=== PATIENT | female | born 1995 | race Caucasian/White ===

== ENCOUNTER 2018-06-18 09:37 | Emergency (ER) | payer OTHER, MEDICAID, SELFPAY ==
[2018-06-18 09:51] VITALS: BP 124/85; PULSE 98; RESP 16; TEMP 37; O2SAT 97
--- NOTE | 2018-06-18 10:06 | ED.GENADUL ---
Disposition Clinical Impression: Exudative pharyngitis Disposition: HOME Condition: Good Instructions: Pharyngitis (ED) Additional Instructions: Small, frequent sips of fluids and/or popsicles to maintain hydration and for comfort. May use Tylenol 652 975 mg every 6 hours and/or ibuprofen 800 mg every 8 hours as needed for discomfort. Take penicillin as prescribed. Follow-up with regular doctor if not improving in 1 week's time prepare for return to the emergency department for difficulty speaking, swallowing, worsening pain, or any other concerns. Prescriptions: Penicillin V Potassium 500 mg PO TID #30 tablet Forms: Work Release Medical Decision Making - Lab Data POC Strep Test-ANGELINA(Rapid) Start: 06/18/18 09:58 Freq: .Rapid Strep Test Status: Active Document 06/18/18 09:58 MMQ (Rec: 06/18/18 09:58 MMQ [id number]) Strep test-ANGELINA(Rapid)-POC POC-Strep test-ANGELINA (Rapid) Negative - Medical Decision Making 23-year-old female presents with 2 days of sore throat, tonsillar erythema with exudate with herpangina versus acute streptococcal infection. She does work with both. I will place her on a course of penicillin. Follow-up with PMD as needed. She stable and appropriate discharge. I discussed home management as well as return precautions with her prior to discharge. History of Present Illness - General Chief complaint: Sorethroat Stated complaint: STREP? Time Seen by Provider: 06/18/18 10:00 Source: patient, RN notes reviewed Mode of arrival: ambulatory Limitations: no limitations - History of Present Illness Initial comments: Throat pain: 23-year-old female, otherwise healthy, on control pills, presents with the gradual onset of dull, achy, moderate, nonradiating bilateral anterior throat pain and pain with swallowing. No change to ability to swallow. She has not had a muffled voice. Subjective fever. Denies other symptoms such as cough, nausea, vomiting, change to stool. Positive sick contacts at work. Improved with fluids. Otherwise she has been well. - Related Data Medroxyprogesterone Acetate [Depo-Provera] 150 mg IM 90 days #1 syringe 05/11/18 Penicillin V Potassium 500 mg PO TID #30 tablet 06/18/18 Allergies Allergy/AdvReac Type Severity Reaction Status Date / Time influenza virus vaccine, AdvReac Severe DIARRHEA Unverified 06/18/18 09:54 specific [influenza virus vacc,specific] Review of Systems Other: 6 systems reviewed, otherwise negative Past Medical History - Past Medical History Medical history: no medical history Surgical history: no surgical history - Social History Alcohol use: none Drug use: other General Exam - General Limitations: no limitations General appearance: alert, in no apparent distress - Head Head exam: Present: atraumatic, normocephalic - Eye Eye exam: Present: PERRL, EOMI - ENT ENT exam: Present: mucous membranes dry, TM's normal bilaterally, other (Bilateral tonsillar erythema with swelling, exudate. Uvula midline. No asymmetry. No poor dentition) - Neck Neck exam: Present: normal inspection, full ROM, lymphadenopathy, other (Mild anterior tenderness.). Absent: meningismus - Respiratory Respiratory exam: Present: normal lung sounds bilaterally. Absent: respiratory distress, chest wall tenderness - Cardiovascular Cardiovascular Exam: Present: regular rate, normal rhythm. Absent: systolic murmur - GI/Abdominal GI/Abdominal exam: Present: soft. Absent: distended, tenderness, mass - Extremities Exam Extremities exam: Present: normal inspection - Back Exam Back exam: Present: normal inspection - Neurological Exam Neurological exam: Present: alert, oriented X3 - Psychiatric Psychiatric exam: Present: normal affect, normal mood - Skin Skin exam: Present: warm, dry, intact Course Vital Signs - 24 hr 06/18/18 09:51 Temperature 37 C Pulse 98 H Respiratory 16 Rate Blood Pressure 124/85 Pulse Oximetry 97
--- NOTE | 2018-06-18 10:09 | ED.GENADUL_ITS ---
Disposition Clinical Impression: Exudative pharyngitis Disposition: HOME Condition: Good Instructions: Pharyngitis (ED) Additional Instructions: Small, frequent sips of fluids and/or popsicles to maintain hydration and for comfort. May use Tylenol 652 975 mg every 6 hours and/or ibuprofen 800 mg every 8 hours as needed for discomfort. Take penicillin as prescribed. Follow-up with regular doctor if not improving in 1 week's time prepare for return to the emergency department for difficulty speaking, swallowing, worsening pain, or any other concerns. Prescriptions: Penicillin V Potassium 500 mg PO TID #30 tablet Forms: Work Release Medical Decision Making - Lab Data POC Strep Test-ANGELINA(Rapid) Start: 06/18/18 09: 58 Freq: .Rapid Strep Test Status: Active Document 06/18/18 09:58 MMQ (Rec: 06/18/18 09:58 MMQ [id number]) Strep test-ANGELINA(Rapid)-POC POC-Strep test-ANGELINA (Rapid) Negative - Medical Decision Making 23-year-old female presents with 2 days of sore throat, tonsillar erythema with exudate with herpangina versus acute streptococcal infection. She does work with both. I will place her on a course of penicillin. Follow-up with PMD as needed. She stable and appropriate discharge. I discussed home management as well as return precautions with her prior to discharge. History of Present Illness - General Chief complaint: Sorethroat Stated complaint: STREP? Time Seen by Provider: 06/18/18 10:00 Source: patient, RN notes reviewed Mode of arrival: ambulatory Limitations: no limitations - History of Present Illness Initial comments: Throat pain: 23-year-old female, otherwise healthy, on control pills, presents with the gradual onset of dull, achy, moderate, nonradiating bilateral anterior throat pain and pain with swallowing. No change to ability to swallow. She has not had a muffled voice. Subjective fever. Denies other symptoms such as cough, nausea, vomiting, change to stool. Positive sick contacts at work. Improved with fluids. Otherwise she has been well. - Related Data Medroxyprogesterone Acetate [Depo-Provera] 150 mg IM 90 days #1 syringe Penicillin V Potassium 500 mg PO TID #30 tablet 06/18/18 Allergies Allergy/AdvReac Type Severity Reaction Status Date / Time influenza virus vaccine, AdvReac Severe DIARRHEA Unverified 06/18/18 09:54 specific [influenza virus vacc,specific] Review of Systems Other: 6 systems reviewed, otherwise negative Past Medical History - Past Medical History Medical history: no medical history Surgical history: no surgical history - Social History Alcohol use: none Drug use: other General Exam - General Limitations: no limitations General appearance: alert, in no apparent distress - Head Head exam: Present: atraumatic, normocephalic - Eye Eye exam: Present: PERRL, EOMI - ENT ENT exam: Present: mucous membranes dry, TM's normal bilaterally, other ( Bilateral tonsillar erythema with swelling, exudate. Uvula midline. No asymmetry. No poor dentition) - Neck Neck exam: Present: normal inspection, full ROM, lymphadenopathy, other (Mild anterior tenderness.). Absent: meningismus - Respiratory Respiratory exam: Present: normal lung sounds bilaterally. Absent: respiratory distress, chest wall tenderness - Cardiovascular Cardiovascular Exam: Present: regular rate, normal rhythm. Absent: systolic murmur - GI/Abdominal GI/Abdominal exam: Present: soft. Absent: distended, tenderness, mass - Extremities Exam Extremities exam: Present: normal inspection - Back Exam Back exam: Present: normal inspection - Neurological Exam Neurological exam: Present: alert, oriented X3 - Psychiatric Psychiatric exam: Present: normal affect, normal mood - Skin Skin exam: Present: warm, dry, intact Course Vital Signs - 24 hr 06/18/18 09:51 Temperature 37 C Pulse 98 H Respiratory 16 Rate Blood Pressure 124/85 Pulse Oximetry 97
== END 2018-06-18 10:40 | disposition home or self-care (01) ==
PROVIDERS: Emergency Provider Emergency Medicine; PCP Physician Assistant Medical
DX: J02.9 Acute pharyngitis, unspecified (principal)
CPT/HCPCS: 87880; 99283; 87081

== ENCOUNTER 2018-08-02 15:22 | Outpatient (REF) | payer OTHER, MEDICAID, SELFPAY ==
--- NOTE | 2018-08-02 15:00 | PAPFT_PTH ---
PATIENT: Ida Doe LOC: [facility] U#:[id number] AGE/SX: 23/F ROOM: RE08/02/[address]: Shavon Maher NP : 1995 BED: DIS: 08/02/2018 SPEC #: [id number] RECD: 08/02/18 18:08 STATUS: BRITTNEY SAMUELS #: [id number] MICHELLE: 08/02/18 15:[address]: Shavon Maher NP DEPT: [facility] Cytology RECD BY: Genie Barker ENTERED: 08/02/18 18:09 SP TYPE: PAPFT OTHR DR: Karina Walters Tissues: 1 - CX/ENDOCX FOR PAP SMEARS Procedures: PAP THIN PREP/UVM Screening Comments: [id number] (CHLAMYDIA/GC)
[2018-08-03 13:52] LABS: Chlamydia Result Negative; GC Result Negative; Specimen Description SEE COMMENTS
== END 2018-08-02 15:42 ==
LOC: LBN 15:22
PROVIDERS: PCP Physician Assistant Medical; Visit Provider Nurse Practitioner Women's Health
DX: Z12.4 Encounter for screening for malignant neoplasm of cervix (principal); Z11.3 Encounter for screening for infections with a predominantly sexual mode of transmission; N94.9 Unspecified condition associated with female genital organs and menstrual cycle
CPT/HCPCS: 87491; 87591; 88142; 87480; 87510; 87660

== ENCOUNTER 2018-08-09 00:48 | Outpatient (CLI) | payer OTHER, MEDICAID, SELFPAY ==
--- NOTE | 2018-08-09 12:42 | DI.US_ITS ---
SYMPTOMS/DIAGNOSIS: PELVIC AND PERINEAL PAIN, R10.2 PELVIC ULTRASOUND: A transabdominal and transvaginal examination was carried out. The uterus is 2.9 cm in length, 3.2 cm in height and 5.3 cm in width with an endometrial stripe thickness of 1.5 mm. The right ovary measures 3 x 2.2 x 3 cm, the left ovary 3 x 1.7 x 2.3 cm. There are multiple right and left follicular cysts. There is no evidence of pelvic free fluid. Prominence of the periuterine and pelvic veins is noted. SUMMARY: The examination is unremarkable with note made of prominence of the periuterine and pelvic veins.
== END 2018-08-09 01:08 ==
PROVIDERS: PCP Physician Assistant Medical; Visit Provider Nurse Practitioner Women's Health
DX: R10.2 Pelvic and perineal pain (principal); N83.01 Follicular cyst of right ovary; N83.02 Follicular cyst of left ovary
CPT/HCPCS: 76830; 76856

== ENCOUNTER 2018-08-27 15:32 | Emergency (ER) | payer OTHER, MEDICAID, SELFPAY ==
[2018-08-27 15:49] VITALS: BP 114/75; PULSE 111; RESP 20; TEMP 37; O2SAT 98
--- NOTE | 2018-08-27 16:10 | DI.RAD_ITS ---
SYMPTOMS/DIAGNOSIS: COUGH FOR 3 WEEKS, MINIMAL WHEEZE, LEFT RIB PAIN PA AND LATERAL CHEST: The heart is normal in size. The lungs are clear. The mediastinal structures and pleura appear intact. SUMMARY: Normal chest.
[2018-08-27] MEDS: methylPREDNISolone SUCC 125 MG VIAL IM (16:37)
[2018-08-27 16:39] VITALS: RESP 4
[2018-08-27] MEDS: Albuterol/Ipratropium 3 ML UPD VIAL 6 ML UPD (16:39)
--- NOTE | 2018-08-27 17:00 | DI.VRAD_ITS ---
EXAM: XR Chest, 2 Views EXAM DATE/TIME: 08/27/2018 4:13 PM CLINICAL HISTORY: 23 years old, female; Signs and symptoms; Cough; Patient HX: Cough 3 weeks, minimal wheeze, l rib pain TECHNIQUE: XR of the chest, 2 views. COMPARISON: CR ABD FLAT UPRIGHT PA CHEST 10/26/2012 12:46 PM FINDINGS: Lungs: Unremarkable. No consolidation. Pleural space: Unremarkable. No pleural effusion. No pneumothorax. Heart/Mediastinum: Unremarkable. No cardiomegaly. Bones/joints: Unremarkable for patient's age. IMPRESSION: No acute findings. Dictated and Authenticated by: Savannah Schrader MD. Ordering:NHAN YATES MD
--- NOTE | 2018-08-27 18:07 | W.ED.GENAD ---
Discharge Plan Disposition Patient Disposition: HOME Condition: Good Discharge Details Chief Complaint: Chest/Rib Clinical Impression: Bronchitis Reason For Visit: pulled something coughing Primary Care Provider: Karina Walters ED Provider: Rod Fitch Home Meds and New Rx's Prescriptions: New azithromycin 250 mg tablet See Label Instructions .ROUTE .COMPLEX Qty: 6 RF: 0 albuterol sulfate 90 mcg/actuation HFA aerosol inhaler 2 puff IH Q6H PRN (Reason: bronchospasm) Qty: 6.7 RF: 0 No Action medroxyprogesterone [Depo-Provera] 150 MG/1 ML syringe 150 mg IM 90 days Qty: 1 RF: 3 Discharge Instructions Instructions: Acute Bronchitis (ED) Additional Instructions: Please take the inhaler daily as directed. Please take the antibiotic only if you do not have any improvement of symptoms in the next 48 hours. If you notice any worsening of your symptoms, or any new symptoms such as vomiting, diarrhea, fever, chills, shortness of breath, chest pain, numbness, weakness, or fainting , please return immediately to the emergency department for reevaluation. Please follow up with your primary care provider as soon as possible for reassessment and reevaluation. As always, it was a pleasure participating in your medical care today. Stand Alone Forms: Work Release Referrals: Karina Walters PA [Primary Care Provider] - Discharge Data Discharge Date/Time-TO BE ENTERED AT DEPARTURE: 08/27/18 18:23 Medical Decision Making Is a pleasant 23-year-old female who presents for evaluation of cough. She presents with 3 weeks of cough, which did get better about 1 week ago and then began worsening again. It is productive with some white and yellow sputum. She does have a distant history of tobacco abuse. She had no significant pleuritic chest pain but did develop some recent left-sided rib pain associated with a cough that is reproducible on exam. She has no risk factors for pulmonary embolism except for a Depakote shot, however her current clinical presentation is not consistent with a pulmonary embolism on my examination. She has no hypoxia, tachypnea, and heart rate was normal on my initial assessment and repeat assessment. Physical exam is consistent though with bronchitis, and potential atypical walking pneumonia. She did have minimal erythema in her posterior oropharynx, strep test was performed and was negative. Physical exam did demonstrate minimal crackles in the bases with a mild wheeze. The patient was giving breathing treatments and she felt much improved after this. With the duration of the patient's symptoms I feel 1 or 2 scenarios are most likely, she either has had 2 separate pulmonary issues, most likely both infectious. Uncertain as to whether or not they are viral versus bacterial however with the duration of her symptoms, the notable lung sounds appreciated on my exam, and her other symptomatology I do feel that it is reasonable to treat with antibiotics for potential walking atypical pneumonia. With her notable improvement with the breathing treatments I will send her home with an inhaler. Chest x-ray showed no signs of focal pneumonia, however I do still feel that treatment is indicated based on her symptomatology. I had a long discussion with the patient regarding red flags for which to return as well as the need for prompt follow-up care and the patient understands. I have extensively reviewed the treatment plan and discharge instructions with the patient. I have addressed all patient concerns at this time. The patient was made aware of what symptoms to monitor for that would warrant a return to the emergency department. Discussed the plan with the patient, they demonstrate verbal understanding and agreement with our assessment and plan at this time. X-ray: No acute findings HPI General Date/Time Provider Initiated Documentation: 08/27/18 15:37. HPI Narrative: This is a 23-year-old female with a past medical history of Depo shot, and a distant history of tobacco abuse in the past. She presents today for evaluation of cough for the last 2-3 weeks. She states that she has been coughing nearly continuously. About a week ago her symptoms notably improved however then they started worsening again. She denies any associated fever, chills, vomiting, or diarrhea. She does have some productivity with her cough with some mild clear to yellow sputum. Over the last 24-48 hours she has noticed worsening of her cough, and she states that she coughed so hard last night and now she has pain in her ribs, primarily on the left but some on the right as well. She denies any relieving symptoms. Her symptoms are worse with coughing. He denies any shortness of breath, pleuritic chest pain, or any PE risk factors such as recent long car rides, immobilization, recent surgery, prior history of DVT or PE, family history of PE or DVT, morbid obesity, and smoking, hemoptysis, history of cancer. She denies any sore throat but does admit to some mild congestion, runny nose, and pressure in her left ear. The patient denies any other associated complaints at this time. She does admit to sick contacts which includes her son, and where she works. She denies any hemoptysis, hematochezia, melena, or acholic stool. She denies any previous surgeries she has no other complaints at this time Related Data Home Medications Medication Instructions Recorded Confirmed medroxyprogesterone [Depo-Provera] 150 mg IM 90 days #1 syringe 05/11/18 08/02/18 albuterol sulfate 2 puff IH Q6H PRN #6.7 gm 08/27/18 azithromycin See Label Instructions .ROUTE 08/27/18 .COMPLEX #6 tab Previous Rx's Medication Instructions Recorded medroxyprogesterone [Depo-Provera] 150 mg IM 90 days #1 syringe 05/11/18 albuterol sulfate 2 puff IH Q6H PRN #6.7 gm 08/27/18 azithromycin See Label Instructions .ROUTE 08/27/18 .COMPLEX #6 tab Allergies Allergy/AdvReac Type Severity Reaction Status Date / Time influenza virus vaccine, AdvReac Severe DIARRHEA Unverified 08/02/18 14:31 specific [influenza virus vacc,specific] General Stated Complaint: Chest/Rib JULIO: 4 Review of Systems Review of Systems All systems reviewed & are unremarkable except as noted in HPI and below PFSH Female Reproductive History Menstrual control method: progesterone injection Total pregnancies: 1 Exam Narrative Exam Narrative: 1.Const: Well-nourished, Well-developed, appearing stated age 2.Eyes: PERRL, no conjunctival injection, and symmetrical lids. 3.ENT: Atraumatic external nose and ears. Moist MM. Neck: Symmetric, trachea midline, No thyromegaly. Mild congestion noted in the patient's nares, minimal effusion in the left tympanic membrane, no effusion in the right. No evidence of erythema, or bulging of the tympanic membranes 4.CVS: +S1/S2, No murmurs or gallops. Peripheral pulses 2+ and equal in all extremities. Brisk capillary refill in all extremities. 5.RESP: Unlabored respiratory effort. Minimal crackles in the bases. Mild wheezes on the left. Notable reproducible chest pain on palpation of the patient's left and right chest, in the area where she has her rib pain. No significant decreased breath sounds. 6.GI: Soft, Nontender/Nondistended, No hepatosplenomegaly. No guarding or rebound. 7.MSK: Normocephalic/Atraumatic, Extremities w/o deformity or ttp No cyanosis or clubbing, Normal movement of all extremities, no calf tenderness, no calf swelling. Negative Homans sign. 8.Skin: Warm, Dry. No rashes or lesions. 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 Sensation grossly intact, no focal neurologic deficits. 10.Psych: (AAO) x3. Appropriate mood and affect Course Vital Signs Temperature 37 C 08/27/18 15:49 Pulse 111 H 08/27/18 15:49 Respiratory Rate 20 08/27/18 15:49 Blood Pressure 114/75 08/27/18 15:49 Pulse Oximetry 98 08/27/18 15:49 Temperature 37 C 08/27/18 15:49 Temperature Source Temporal Artery Scan 08/27/18 15:49 Pulse 111 H 08/27/18 15:49 Respiratory Rate 20 08/27/18 15:49 Respiratory Effort 08/27/18 15:54 Respiratory Depth Normal 08/27/18 15:54 Blood Pressure 114/75 08/27/18 15:49 Pulse Oximetry 98 08/27/18 15:49 Oxygen Delivery Method Room Air 08/27/18 15:49 Oxygen Flow Rate 0 08/27/18 15:49 Lab/Test Results Lab/Test Results: 08/27/18 16:10 Pharynx Streptococcus Screen ([facility]) - Pending POC Strep Test-ANGELINA(Rapid) Start: 08/27/18 16:08 Freq: .Rapid Strep Test Status: Active Protocol: Document 08/27/18 16:21 SGL (Rec: 08/27/18 16:22 [facility] [id number]) Strep test-ANGELINA(Rapid)-POC POC-Strep test-ANGELINA (Rapid) Negative POC-Strep test-ANGELINA (Rapid) Negative
[2018-08-27 18:24] VITALS: PULSE 92; RESP 18; TEMP 36.8; O2SAT 98
== END 2018-08-27 18:23 | disposition home or self-care (01) ==
PROVIDERS: Emergency Provider Student in an Organized Health Care Education/Training Program; PCP Physician Assistant Medical
DX: J20.9 Acute bronchitis, unspecified (principal); Z87.891 Personal history of nicotine dependence
CPT/HCPCS: 87880; 94640; 96372; 99284; 71046; 87081; 99283; J2930; J7620

== ENCOUNTER 2019-01-02 15:01 | Emergency (ER) | payer OTHER, MEDICAID, SELFPAY ==
[2019-01-02 15:04] VITALS: BP 133/79; PULSE 96; RESP 14; TEMP 36.5; O2SAT 98
--- NOTE | 2019-01-02 16:23 | ED.GENADUL_ITS ---
Discharge Plan Disposition Patient Disposition: HOME Condition: Stable Discharge Details Chief Complaint: Sorethroat Clinical Impression: Sensation of foreign body in throat Primary Care Provider: Karina Walters ED Provider: Levy Marcus Home Meds and New Rx's Prescriptions: Continued medroxyprogesterone [Depo-Provera] 150 MG/1 ML syringe 150 mg IM 90 days Qty: 1 RF: 3 albuterol sulfate 90 mcg/actuation HFA aerosol inhaler 2 puff IH Q6H PRN (Reason: bronchospasm) Qty: 6.7 RF: 0 Discharge Instructions Instructions: Pharyngitis (ED) Additional Instructions: Return to emergency department immediately if you have any difficulty swallowing, change in voice, difficulty breathing or any further concerns you may have. Otherwise you may continue to use [id number] Tylenol or Motrin for discomfort and if continued to have symptoms over the next week please follow-up with your primary care provider for reassessment Referrals: Karina Walters PA [Primary Care Provider] - 1 week (For reassessment if not improving) Discharge Data Discharge Date/Time-TO BE ENTERED AT DEPARTURE: 01/02/19 18:30 Medical Decision Making Patient presenting to the emergency department for chief complaint of foreign body sensation in her anterior neck. Patient denies any fever chills, states mild nasal congestion, no other cold symptoms. She states that this is been going on for the past week but is worsened over the past 24 hours. Patient has anterior neck pain with outpatient of the cricoid cartilage, no stridor, no drooling, no trismus, no vocal changes. There is still concern for retropharyngeal abscess given some discomfort with swallowing. Plan to do CT imaging of neck for rule out of retropharyngeal abscess. Review of CT imaging shows no acute finding and radiologist interpretation also states the same. Patient has no vocal changes, no trismus, no drooling, no stridor. I feel that patient can be safely discharged with recommendation to follow-up with primary care provider if not improving over the next week or to return immediately to the emergency department for any worsening symptoms. Full return precautions were discussed with patient. After discussion of diagnosis and plan of care patient has no further needs, questions, or concerns and states clear understanding to return to the emergency department for any worsening symptoms. HPI General Mode of arrival: ambulatory . Date/Time Provider Initiated Documentation: 01/02/19 15:09 . Limitations to Documentation: no limitations . Information obtained by: patient and RN notes reviewed . History of Present Illness 23 year old F presents to the emergency department with the chief complaint of Foreign body sensation neck, described as mild, with intensity rated at 1. Quality is described as aching, and is localized to the neck. Patient started experiencing this week(s) (1) and it has been constant and other (worse today). Patient did receive the following treatments prior to arrival, none Related Data Home Medications Medication Instructions Recorded Confirmed medroxyprogesterone [Depo-Provera] 150 mg IM 90 days #1 syringe 05/11/18 01/02/19 albuterol sulfate 2 puff IH Q6H PRN #6.7 gm 08/27/18 01/02/19 Previous Rx's Medication Instructions Recorded medroxyprogesterone [Depo-Provera] 150 mg IM 90 days #1 syringe 05/11/18 albuterol sulfate 2 puff IH Q6H PRN #6.7 gm 08/27/18 Allergies Allergy/AdvReac Type Severity Reaction Status Date / Time influenza virus vaccine, AdvReac Severe DIARRHEA Unverified 01/02/19 15:07 specific [influenza virus vacc,specific] General Stated Complaint: Sorethroat JULIO: 4 Review of Systems Constitutional Denies chills, Denies fever(s), Denies headache(s) and Denies malaise ENT Denies change in voice, Reports dysphagia, Denies otalgia, Denies headache(s), Denies hoarseness, Denies lip swelling, Denies mouth lesions, Reports nasal congestion, Reports neck pain, Reports odynophagia, Denies sore throat, Denies throat swelling and Denies tongue swelling Cardiovascular Denies chest pain Respiratory Denies chest congestion and Denies cough Gastrointestinal Reports dysphagia and Reports odynophagia Musculoskeletal Reports neck pain Neurologic Denies headache(s) Allergic/Immunologic Denies lip swelling, Denies throat swelling and Denies tongue swelling PFSH Surgical History repair of fx. r elbow growth plate Family History Mother Post traumatic stress disorder (PTSD) Alcohol abuse COPD (chronic obstructive pulmonary disease) Father Alcohol abuse Grandmother Asthma Maternal Grandmother Emphysema/COPD Lung cancer Maternal Grandfather Emphysema/COPD Social History Smoking and Tabacco status: Former Tobacco Use Female Reproductive History Menstrual control method: progesterone injection History History 1 Para Hx # Term Pregnancies 1 Multiple births Hx # Pregnancies Ectopic pregnancies AB induced Hx Number of Living Children AB spontaneous Exam Const General: cooperative, healthy appearing, comfortable, no acute distress and not ill appearing Orientation: alert, awake and oriented x3 HENMT Head: normal to inspection and normocephalic Ears: hearing grossly normal bilaterally, external ears normal, mastoids normal and unable to visualize TM bilaterally (Cerumen ) General nose exam: external nose normal and nares normal Face and sinus: normal facial exam and sinuses nontender Mouth: oral mucosae normal, lip normal, tongue normal, no audible dysphonia, no drooling and no trismus Throat: posterior oropharynx normal, tonsils normal, uvula midline, no peritonsillar masses, no postnasal drainage and no uvular edema Neck Neck: normal visual inspection, full ROM, no lymphadenopathy, no meningeal signs, trachea midline, no anterior neck swelling and tender (Anterior neck at cricoid cartilage) Thyroid: thyroid normal Resp Effort & Inspection: normal respiratory effort, able to speak in complete sentences and no stridor Auscultation: clear to auscultation bilaterally Cardio Rate: regular rate Rhythm: regular rhythm Heart Sounds: S1 normal and S2 normal Skin General skin exam: no rashes or lesions noted Course Vital Signs Temperature 36.5 C 01/02/19 15:04 Pulse 96 H 01/02/19 15:04 Respiratory Rate 14 01/02/19 15:04 Blood Pressure 133/79 01/02/19 15:04 Pulse Oximetry 98 01/02/19 15:04 Temperature 36.5 C 01/02/19 15:04 Temperature Source Temporal Artery Scan 01/02/19 15:04 Pulse 96 H 01/02/19 15:04 Respiratory Rate 14 01/02/19 15:04 Respiratory Effort Non-Labored 01/02/19 15:06 Blood Pressure 133/79 01/02/19 15:04 Blood Pressure Position Sitting 01/02/19 15:04 Pulse Oximetry 98 01/02/19 15:04 Pain Level 0 01/02/19 15:04
[2019-01-02] MEDS: Normal Saline Flush 10 ML SYR IVP (17:42)
[2019-01-02] MEDS: Omnipaque 350 MG/ML 100 ML BTL IJ (17:42)
--- NOTE | 2019-01-02 17:45 | DI.CT_ITS ---
SYMPTOM/DIAGNOSIS: LOW NECK PAIN, FEELS LIKE LUMP IN THROAT NECK CT: CT scan of the neck was performed following the uneventful administration of intravenous contrast material. There are no priors for comparison. The visualized intracranial structures are unremarkable. The orbital and retro- orbital soft tissues are unremarkable. Small mucus retention cysts or polyps are seen in the maxillary sinuses. The remaining visualized paranasal sinuses are clear. No fluid levels are seen. The mastoid air cells are well pneumatized. The nasopharynx, oropharynx, hypopharynx and larynx are unremarkable. The retropharyngeal soft tissues are unremarkable. The submandibular and parotid glands have a normal appearance. The thyroid gland has a normal appearance. No significant cervical adenopathy is appreciated. No evidence of an abscess or other abnormal fluid collection is seen in the neck. The lung apices are clear. The cervical spine is grossly unremarkable. IMPRESSION: No acute abnormality.
--- NOTE | 2019-01-02 17:49 | DI.VRAD_ITS ---
EXAM: CT Neck With Contrast EXAM DATE/TIME: 01/02/2019 4:17 PM CLINICAL HISTORY: 23 years old, female; Signs and symptoms; Other: Lower neck pain TECHNIQUE: Axial computed tomography images of the neck with intravenous contrast. All CT scans at this facility use at least one of these dose optimization techniques: automated exposure control; mA and/or kV adjustment per patient size (includes targeted exams where dose is matched to clinical indication); or iterative reconstruction. Coronal and sagittal reformatted images were created and reviewed. CONTRAST: Contrast Material: 100 ml of Omnipaque 350; Contrast Route: IV COMPARISON: No relevant prior studies available. FINDINGS: Oropharynx: Unremarkable. No significant tonsillar enlargement. No peritonsillar abscess. Larynx: Unremarkable. Normal epiglottis. Submandibular/Parotid glands: Unremarkable. Thyroid: Unremarkable. No enlarged or calcified nodules. Lymph nodes: No lymphadenopathy. Lungs: Normal as visualized. Vasculature: Unremarkable. Bones/joints: No acute osseus lesions or fractures. Soft tissues: Unremarkable. No significant soft tissue swelling. IMPRESSION: No acute findings. Dictated and Authenticated by: Todd De La Rosa MD. Ordering:JAN Lockett MD
== END 2019-01-02 18:30 | disposition home or self-care (01) ==
PROVIDERS: Emergency Provider Nurse Practitioner Family; PCP Physician Assistant Medical
DX: R09.89 Other specified symptoms and signs involving the circulatory and respiratory systems (principal)
CPT/HCPCS: 36415; 70491; 99285; 99284; J3490

== ENCOUNTER 2019-05-06 13:41 | Emergency (ER) | payer OTHER, MEDICAID, SELFPAY ==
[2019-05-06 13:43] VITALS: BP 131/85; PULSE 103; RESP 14; TEMP 36.9; O2SAT 97
--- NOTE | 2019-05-06 17:52 | ED.GENADUL_ITS ---
Discharge Plan Disposition Patient Disposition: HOME Condition: Good Discharge Details Chief Complaint: Sorethroat Clinical Impression: Acute viral pharyngitis Primary Care Provider: Karina Walters ED Provider: Ori Kelly Home Meds and New Rx's Prescriptions: Continued norgestimate-ethinyl estradiol [Sprintec (28)] 0.25-35 mg-mcg tablet 1 tab PO DAILY Qty: 84 RF: 6 Discharge Instructions Instructions: Upper Respiratory Infection (ED) Discharge Data Discharge Date/Time-TO BE ENTERED AT DEPARTURE: 05/06/19 15:09 HPI Ida presents for evaluation of sore throat for the past 3 days, some irritation of her ears as well as feeling rundown. No fevers. Dry cough present. No recent sick contacts, no foreign travel. Otherwise well. General Date/Time Provider Initiated Documentation: 05/06/19 14:22 . Related Data Home Medications Medication Instructions Recorded Confirmed norgestimate 0.25 mg-ethinyl 1 tab PO DAILY #84 tab 01/17/19 05/06/19 estradiol 35 mcg tablet Previous Rx's Medication Instructions Recorded norgestimate 0.25 mg-ethinyl 1 tab PO DAILY #84 tab 01/17/19 estradiol 35 mcg tablet Allergies Allergy/AdvReac Type Severity Reaction Status Date / Time influenza virus vaccine, AdvReac Severe DIARRHEA Unverified 05/06/19 13:47 specific [influenza virus vacc,specific] General Stated Complaint: Sorethroat JULIO: 4 Review of Systems Constitutional Denies chills, Denies fatigue, Denies fever(s) and Denies lethargy Eyes Denies loss of vision ENT Denies nasal congestion Cardiovascular Denies chest pain and Denies dyspnea Respiratory Denies dyspnea Gastrointestinal Denies abdominal pain, Denies nausea and Denies vomiting Musculoskeletal Denies back pain, Denies muscle weakness and Denies numbness Integumentary/Breasts Denies rash Neurologic Denies focal weakness, Denies loss of vision and Denies numbness Endocrine Denies fatigue Hematologic/Lymphatic Denies easy bruising PFSH Social History Smoking/Tobacco Use Status: Former Tobacco Use Alcohol Intake: former Drug use: Current Sobriety Do you feel safe at home: Yes Do you feel safe in your relationship?: Yes Female Reproductive History Menstrual control method: pills History History 1 Para Hx # Term Pregnancies 1 Multiple births Hx # Pregnancies Ectopic pregnancies AB induced Hx Number of Living Children AB spontaneous Exam Const General: cooperative, healthy appearing and no acute distress HENMT Head: normal to inspection Ears: hearing grossly normal bilaterally Other: Pharyngeal erythema with some tonsillar swelling without exudate. Eyes EOM: EOM intact bilaterally Neck Neck: normal visual inspection Resp Effort & Inspection: normal respiratory effort Auscultation: clear to auscultation bilaterally Cardio Rate: regular rate Rhythm: regular rhythm Heart Sounds: no murmurs Skin General skin exam: no rashes or lesions noted Neuro General: alert, awake and oriented x3 Speech: speech normal Gait: normal gait Extrem General: normal to inspection Course Vital Signs Temperature 36.9 C 05/06/19 13:43 Pulse 103 H 05/06/19 13:43 Respiratory Rate 14 05/06/19 13:43 Blood Pressure 131/85 05/06/19 13:43 Pulse Oximetry 97 05/06/19 13:43 Temperature 36.9 C 05/06/19 13:43 Temperature Source Skin 05/06/19 13:43 Pulse 103 H 05/06/19 13:43 Respiratory Rate 14 05/06/19 13:43 Respiratory Effort 05/06/19 13:47 Blood Pressure 131/85 05/06/19 13:43 Blood Pressure Position Sitting 05/06/19 13:43 Pulse Oximetry 97 05/06/19 13:43 Oxygen Delivery Method Room Air 05/06/19 13:43 Oxygen Flow Rate 0 05/06/19 13:43 Pain Level 4 05/06/19 13:43 Lab/Test Results Lab/Test Results: 05/06/19 13:50 Pharynx Streptococcus Screen ([facility]) - Pending POC Strep Test-ANGELINA(Rapid) Start: 05/06/19 14:01 Freq: Status: Discharge Protocol: Document 05/06/19 14:02 CT (Rec: 05/06/19 14:02 CT [id number]) Strep test-ANGELINA(Rapid)-POC POC-Strep test-ANGELINA (Rapid) Negative POC-Strep test-ANGELINA (Rapid) Negative
== END 2019-05-06 15:09 | disposition home or self-care (01) ==
PROVIDERS: Emergency Provider Physician Assistant Medical; PCP Physician Assistant Medical
DX: J02.9 Acute pharyngitis, unspecified (principal); Z87.891 Personal history of nicotine dependence
CPT/HCPCS: 87880; 99283; 87081

== ENCOUNTER 2019-09-26 11:32 | Outpatient (REF) | payer OTHER, MEDICAID, SELFPAY ==
[2019-09-27 14:28] LABS: Chlamydia Result Negative (Negative)
[2019-09-27 14:55] LABS: GC Result Negative (Negative)
== END 2019-09-26 11:52 ==
LOC: LBN 11:32
PROVIDERS: PCP Physician Assistant Medical; Visit Provider Nurse Practitioner Family
DX: Z11.3 Encounter for screening for infections with a predominantly sexual mode of transmission (principal)
CPT/HCPCS: 87491; 87591

== ENCOUNTER 2021-01-06 01:03 | Outpatient (CLI) | payer MEDICAID, SELFPAY ==
--- NOTE | 2021-01-06 06:45 | DI.US_ITS ---
EXAM: US PELVIS TRANSVAGINAL CLINICAL HISTORY: Pelvic pain, amenorrhea,R10.2,N91.2 TECHNIQUE: Ultrasound of the pelvis was performed both transabdominal and transvaginal. COMPARISON: US US PELVIS TRANSVAGINAL from 08/09/2018 FINDINGS: UTERUS: Measures 8.7 cm length x 3.6 cm AP x 5.2 cm wide. There are no uterine fibroids. Endometrial thickness measures 7 mm. There is no fluid in the endometrial canal. CERVIX: There are no obvious nabothian cysts. RIGHT OVARY: Measures 3.7 x 2.2 x 2.2 cm No significant cysts nor masses evident in the right ovary. LEFT OVARY: Measures 3.7 x 1.5 x 2.5 cm No significant cysts nor masses evident in the left ovary. CUL-DE-SAC: No free fluid evident. Visualized kidneys appear unremarkable. IMPRESSION: 1. Normal appearing uterus and age-appropriate endometrium. 2. No abnormal ovarian findings. 3. No free fluid evident in the adnexal regions and cul-de-sac. DATA REPOSITORY:
== END 2021-01-06 01:04 ==
LOC: DI 01:04
PROVIDERS: PCP Physician Assistant Medical; Visit Provider Nurse Practitioner Women's Health
DX: R10.2 Pelvic and perineal pain (principal); N91.2 Amenorrhea, unspecified
CPT/HCPCS: 76830; 76856

== ENCOUNTER 2021-01-06 02:30 | Outpatient (CLI) | payer MEDICAID, SELFPAY ==
[2021-01-06 09:09] LABS: TSH (W/Ref FT4) 2.51 uIU/mL (0.36-3.74)
[2021-01-06 18:28] LABS: FSH 4.3 mIU/mL (See Note); Prolactin 14.8 ng/mL (See Table)
== END 2021-01-06 02:31 | disposition home or self-care (01) ==
LOC: LBO 02:30
PROVIDERS: PCP Physician Assistant Medical; Visit Provider Nurse Practitioner Women's Health
DX: R63.5 Abnormal weight gain (principal); N91.2 Amenorrhea, unspecified
CPT/HCPCS: 36415; 83001; 84146; 84443

== ENCOUNTER 2021-09-10 12:41 | Outpatient (REF) | payer MEDICAID, SELFPAY | END 2021-09-10 12:42 | disposition home or self-care (01) | LOC: LBN 12:41 | PROVIDERS: PCP Physician Assistant Medical; Visit Provider Family Medicine | DX: J02.9 Acute pharyngitis, unspecified (principal) | CPT/HCPCS: 87070 ==

== ENCOUNTER 2021-09-13 08:22 | Emergency (ER) | payer MEDICAID, SELFPAY ==
[2021-09-13 08:31] VITALS: BP 128/95; PULSE 102; TEMP 37.4; O2SAT 98
[2021-09-13 10:23] LABS: Abs Immature Grans 0.03 10^3/uL (0.0-0.06); HCT 45.1 % (36.0-46.0); HGB 14.6 g/dL (11.2-15.7); MCH 29.2 pg (27.0-33.0); MCHC 32.4 % (32.0-36.0); MCV 90.2 fL (80-95); MPV 11.2 fL (8.0-11.0); Nucleated RBC 0 %; RDW 12.5 % (11.7-14.6); RDW-SD 41.1 fL; WBC 5.69 10^3/uL (4.4-10.8)
--- NOTE | 2021-09-13 10:27 | ED.GENADUL_ITS ---
Discharge Plan Disposition Patient Disposition: HOME Condition: Stable Discharge Details Clinical Impression: Pharyngitis, Elevated liver enzymes Primary Care Provider: Karina Walters ED Provider: Cindy Katz Home Meds and New Rx's Prescriptions: New prednisone 20 mg tablet 40 mg PO DAILY Qty: 8 RF: 0 Discharge Instructions Instructions: Pharyngitis (ED) Additional Instructions: Please return immediately to the emergency department if you develop any new or worsening symptoms, if your condition does not improve as expected, or if you become otherwise concerned. It is extremely important that you call soon as possible to make an appointment to be seen in follow-up for this visit by your primary care doctor. Stand Alone Forms: PENDING COVID-19 TESTING, School Release Referrals: Karina Walters PA [Primary Care Provider] - Discharge Data Discharge Date/Time-TO BE ENTERED AT DEPARTURE: 09/13/21 11:38 Medical Decision Making Ida Doe is a 26 y/o woman without reported h/o major medical problems who presented to the emergency department with sore throat for 6 days, tested for covid and strep and both neg. On exam Pt is very well and non-toxic appearing. b/l tonsillar edema with midline uvula, no impending airway compromise. Full painless ROM of neck. Concern for strep, mono, other viral pharyngitis. Exam/hx at this time not c/w other bacterial pharyngitis, sepsis, retropharyngeal abscess, peritonsillar abscess, epiglottitis, impending air compromise, meningitis, deep space abscess of the head or neck. Plan for screening labs. Labs reviewed. RS neg. mono neg. COVID neg. LFTs mildly elevated, unclear etiology. Pt taking PO in the ED without issue. Plan for steroids, outpt f/u. I had a lengthy discussion with Patient regarding return to emergency department precautions, home care, and importance of outpatient follow-up. Pt verbalizes understanding of the plan and is amenable. Patient discharged to home with clear plan for outpatient follow-up. All questions were answered. Disposition decision was made weighing the risks and benefits of hospitalization versus outpatient treatment, the risk for further decompensation, and the patient's wishes. Medical Records Medical records reviewed: Yes I reviewed the patient's medical records. Lab Data Lab results reviewed: Yes I reviewed the patient's lab results. Labs: 09/13/21 08:31 Pharynx Group A Streptococcus Culture - Final Laboratory Tests Range/Units 09/13/21 09/13/21 09/13/21 10:18 10:18 10:18 WBC (4.4-10.8) 10^3/uL 5.69 RBC (3.93-5.22) 10^6/uL 5.00 Hgb (11.2-15.7) g/dL 14.6 Hct (36.0-46.0) % 45.1 MCV (80-95) fL 90.2 MCH (27.0-33.0) pg 29.2 MCHC (32.0-36.0) % 32.4 RDW (11.7-14.6) % 12.5 Plt Count (130-400) 10^3/uL 186 MPV (8.0-11.0) fL 11.2 H Immature Gran % See Differential Neutrophils % 60.0 Lymphocytes % 19.0 Atypical Lymphs % 4 Monocytes % 15.0 Eosinophils % 1.0 Basophils % 1.0 Nucleated RBC % % 0 Absolute Neutrophils (1.2-6.7) 10^3/uL 3.41 Absolute Lymphocytes (1.2-3.4) 10^3/uL 1.31 Absolute Monocytes (0.1-0.8) 10^3/uL 0.85 H Absolute Eosinophils (0.0-0.7) 10^3/uL 0.06 Absolute Basophils (0.0-0.2) 10^3/uL 0.06 RBC Morphology Normal Sodium (136-145) mmol/L 139 Potassium (3.5-5.1) mmol/L 3.9 Chloride (98-107) mmol/L 101 Carbon Dioxide (21.0-32.0) mmol/L 27.9 Anion Gap (3-11) mmol/L 10.1 BUN (7-18) mg/dL 11 Creatinine (0.55-1.02) mg/dL 0.9 Estimated GFR/1.73 m2 (mL/min/1.73m2) >= 60.00 Glucose (74-106) mg/dL 96 Calcium (8.5-10.1) mg/dL 9.2 Total Bilirubin (0.2-1.0) mg/dL 0.6 AST (15-37) U/L 49 H ALT (14-59) U/L 70 H Alkaline Phosphatase (46-116) U/L 76 Total Protein (6.4-8.2) g/dL 8.0 Albumin (3.4-5.0) g/dL 3.6 SARS-CoV-2 (PCR) (Negative) Nasopharyn COVID-19 PCR Monoscreen (Negative) Negative Ref Test Perform Site Range/Units 09/13/21 10:45 WBC (4.4-10.8) 10^3/uL RBC (3.93-5.22) 10^6/uL Hgb (11.2-15.7) g/dL Hct (36.0-46.0) % MCV (80-95) fL MCH (27.0-33.0) pg MCHC (32.0-36.0) % RDW (11.7-14.6) % Plt Count (130-400) 10^3/uL MPV (8.0-11.0) fL Immature Gran % Neutrophils % Lymphocytes % Atypical Lymphs % Monocytes % Eosinophils % Basophils % Nucleated RBC % % Absolute Neutrophils (1.2-6.7) 10^3/uL Absolute Lymphocytes (1.2-3.4) 10^3/uL Absolute Monocytes (0.1-0.8) 10^3/uL Absolute Eosinophils (0.0-0.7) 10^3/uL Absolute Basophils (0.0-0.2) 10^3/uL RBC Morphology Sodium (136-145) mmol/L Potassium (3.5-5.1) mmol/L Chloride (98-107) mmol/L Carbon Dioxide (21.0-32.0) mmol/L Anion Gap (3-11) mmol/L BUN (7-18) mg/dL Creatinine (0.55-1.02) mg/dL Estimated GFR/1.73 m2 (mL/min/1.73m2) Glucose (74-106) mg/dL Calcium (8.5-10.1) mg/dL Total Bilirubin (0.2-1.0) mg/dL AST (15-37) U/L ALT (14-59) U/L Alkaline Phosphatase (46-116) U/L Total Protein (6.4-8.2) g/dL Albumin (3.4-5.0) g/dL SARS-CoV-2 (PCR) (Negative) Negative Nasopharyn COVID-19 PCR Not Applicable Monoscreen (Negative) Ref Test Perform Site [id number] [facility] Lab HPI General Mode of arrival: ambulatory . Date/Time Provider Initiated Documentation: 09/13/21 09:35 . Limitations to Documentation: no limitations . Information obtained by: patient, RN notes reviewed and old records reviewed . HPI Narrative: Ida Doe is a 26 y/o woman without reported h/o major medical problems presenting to the emergency department with sore throat. Pt reports that she has had sore throat for 6 days, had covid test 5 days ago which returned negative. Pt reports that she presented to for sore throat and fever 103 4 days ago and had strep test which was also negative. Pt reports that she has had persistent unchanged sore throat since then. No further fevers. She denies any other pain, SOB, cough fever, vomiting, diarrhea, numbness, weakness, rash. Pt reports that she is able to eat and drink, but has discomfort swallowing some food due to sore throat. Lying flat in bed at night, no difficulty breathing. She denies voice change or drooling. Feels otherwise well and in her usual state of health. Related Data Home Medications Medication Instructions Recorded Confirmed prednisone 40 mg PO DAILY #8 tab 09/13/21 Previous Rx's Medication Instructions Recorded prednisone 40 mg PO DAILY #8 tab 09/13/21 Allergies Allergy/AdvReac Type Severity Reaction Status Date / Time influenza virus vaccine, AdvReac Severe DIARRHEA Verified 12/30/20 13:35 specific [influenza virus vacc,specific] General Stated Complaint: Sorethroat JULIO: 4 Review of Systems Narrative: Constitutional: reports fever 4 days ago, none sice Eyes: denies eye pain ENT: denies ear pain, dental pain, reports sore throat Cardiovascular: denies chest pain, edema Respiratory: denies SOB, cough GI: denies abdominal pain, vomiting, diarrhea : denies flank pain MSK: denies back pain, neck pain, arthralgias, myalgias Skin: denies rash Neuro: denies headaches, numbness, weakness [facility] Active Problem List (Updated 09/13/21 @ 11:14 by iCndy Katz MD) Pharyngitis (Acute) Elevated liver enzymes (Acute) Surgical History repair of fx. r elbow growth plate Family History Mother Post traumatic stress disorder (PTSD) Alcohol abuse COPD (chronic obstructive pulmonary disease) Father Alcohol abuse Grandmother Asthma Maternal Grandmother Emphysema/COPD Lung cancer Maternal Grandfather Emphysema/COPD Social History Smoking/Tobacco Use Status: Former Tobacco Use Tobacco: How many years used: 10 Smoking risk assessment performed?: Yes Alcohol Intake: current Alcohol Intake frequency: holidays/special occasions only Drug use: Current Sobriety Seatbelt use: always Do you feel safe at home: Yes Do you feel safe in your relationship?: Yes Female Reproductive History Menstrual control method: pills History History 1 Para Hx # Term Pregnancies 1 Multiple births Hx # Pregnancies Ectopic pregnancies AB induced Hx Number of Living Children AB spontaneous Exam Narrative Exam Narrative: Constitutional: well and [id number]-[id number], pleasant, conversing normally HENT: head atraumatic/normocephalic/normal inspection, mucous membranes moist, b/l 2+ tonsillar edema, b/l tonsillar exudate, uvula midline, normal voice, no drooling, no pooling of secretions, no tongue elevation or subglossal induration, no intra-oral lesion Eyes: conjunctiva normal, sclera normal, pupils 3mm b/l Neck: no stridor, full painless ROM, trachea midline, no edema Chest: normal inspection Resp: normal work of breathing, speaking in full sentences Cardio: normal rate, normal rhythm GI: abdomen soft, non-tender, non-distended, no hepato- or splenomegaly Skin: warm, dry, normal color, no rash Neuro: alert, not altered, grossly non-focal, normal tone Ext: no edema Psych: normal mood, normal affect, normal behavior Course Vital Signs Vital signs: Vital Signs Temperature 37.4 C 09/13/21 08:31 Pulse 102 H 09/13/21 08:31 Blood Pressure 128/95 H 09/13/21 08:31 Pulse Oximetry 98 09/13/21 08:31 Temperature 37.4 C 09/13/21 08:31 Temperature Source Temporal Artery Scan 09/13/21 08:31 Pulse 102 H 09/13/21 08:31 Respiratory Effort Non-Labored 09/13/21 08:37 Blood Pressure 128/95 H 09/13/21 08:31 Blood Pressure Position Sitting 09/13/21 08:31 Pulse Oximetry 98 09/13/21 08:31 Oxygen Delivery Method Room Air 09/13/21 08:31 Oxygen Flow Rate 0 09/13/21 08:31 Pain Level 7 09/13/21 08:31 Lab/Test Results Lab/Test Results: 09/13/21 08:31 Pharynx Group A Streptococcus Culture - Pending POC Strep Test-ANGELINA(Rapid) Start: 09/13/21 08:41 Freq: Status: Active Protocol: Document 09/13/21 08:50 (Rec: 09/13/21 08:50 [id number]) Strep test-ANGELINA(Rapid)-POC POC-Strep test-ANGELINA (Rapid) Negative POC-Strep test-ANGELINA (Rapid) Negative PAWSS Have you Been Recently Intoxicated or Drunk Within the Last 30 days?: No Have you Ever Experienced Previous Episodes of Alcohol Withdrawal?: No Have you ever Experienced Withdrawal Seizures?: No Have you ever Experienced Delirium Tremens(DT)s?: No Have you ever undergone Alcohol Rehabilitation Treatment (i.e, inpt ot outpatient treatment programs)?: No Have you ever Experienced Blackouts?: No Have you ever Combined Alcohol with other Downers within the last 90 days?: No Have you ever Combined Alcohol with any other Substance of Abuse during the last 90 days?: No Positive Blood Alcohol level on Presentation? [PCS.BAL]: No Evidence of Increased Autonomic Activity (i.e. HR>120, tremor, sweating, agitation, nausea)?: No Result: 0
[2021-09-13 10:32] LABS: Mono Screening Negative (Negative)
[2021-09-13 10:35] LABS: ALT 70 U/L (14-59); AST 49 U/L (15-37); Albumin 3.6 g/dL (3.4-5.0); Alkaline Phosphatase 76 U/L (46-116); Anion Gap 10.1 mmol/L (3-11); BUN 11 mg/dL (7-18); Bilirubin, Total 0.6 mg/dL (0.2-1.0); CO2 27.9 mmol/L (21.0-32.0); CREATININE 0.9 mg/dL (0.55-1.02); Calcium 9.2 mg/dL (8.5-10.1); Chloride 101 mmol/L (98-107); Glucose 96 mg/dL (74-106); Potassium 3.9 mmol/L (3.5-5.1); Sodium 139 mmol/L (136-145)
[2021-09-13 10:47] LABS: Absolute Basophil Count 0.06 10^3/uL (0.0-0.2); Absolute Eosinophil Count 0.06 10^3/uL (0.0-0.7); Absolute Lymphocyte Count 1.31 10^3/uL (1.2-3.4); Absolute Monocyte Count 0.85 10^3/uL (0.1-0.8); Absolute Neutrophil Count 3.41 10^3/uL (1.2-6.7); Atypical Lymphocytes % 4; Diff Comment Manual Differential; Platelet Count 186 10^3/uL (130-400); RBC Morphology Normal
[2021-09-13] MEDS: predniSONE 20 MG TAB 40 MG PO (11:27)
[2021-09-14 11:42] LABS: COVID-19 RT-PCR UVMMC Result Negative (Negative)
== END 2021-09-13 11:38 | disposition home or self-care (01) ==
PROVIDERS: Emergency Provider Student in an Organized Health Care Education/Training Program; PCP Physician Assistant Medical
DX: J02.9 Acute pharyngitis, unspecified (principal); R74.01 Elevation of levels of liver transaminase levels; Z20.822 Contact with and (suspected) exposure to COVID-19; Z03.818 Encounter for observation for suspected exposure to other biological agents ruled out
CPT/HCPCS: 36415; 80053; 87880; 99283; U0003; 85025; 86308; 87081; J7512

== ENCOUNTER 2021-09-23 18:16 | Outpatient (REF) | payer MEDICAID, SELFPAY ==
[2021-09-25 18:24] LABS: COVID-19 RT-PCR UVMMC Result Negative (Negative)
== END 2021-09-23 18:17 | disposition home or self-care (01) ==
LOC: NCHCN 18:16
PROVIDERS: PCP Physician Assistant Medical; Visit Provider Nurse Practitioner Family
DX: Z20.822 Contact with and (suspected) exposure to COVID-19 (principal); J03.90 Acute tonsillitis, unspecified
CPT/HCPCS: U0003

== ENCOUNTER 2021-10-29 03:25 | Outpatient (CLI) | payer MEDICAID, SELFPAY ==
[2021-11-01 10:36] LABS: HIV-1/2 Ag & Ab Screen Negative (Negative)
[2021-11-01 10:41] LABS: Hepatitis C Ab w Rflx HCV PCR Negative (Negative)
[2021-11-02 10:07] LABS: Syphilis Total Ab w/Reflex Nonreactive (Nonreactive)
== END 2021-10-29 03:26 | disposition home or self-care (01) ==
LOC: LBO 03:26
PROVIDERS: PCP Physician Assistant Medical; Visit Provider Nurse Practitioner Women's Health
DX: Z11.3 Encounter for screening for infections with a predominantly sexual mode of transmission (principal); Z11.4 Encounter for screening for human immunodeficiency virus [HIV]; Z11.59 Encounter for screening for other viral diseases
CPT/HCPCS: 36415; 86803; 87389; 86780

== ENCOUNTER 2022-02-07 13:33 | Outpatient (REF) | payer MEDICAID, SELFPAY ==
--- NOTE | 2022-02-07 11:20 | PAPFT_PTH ---
PATIENT: Ida Doe LOC: [facility] U#:[id number] AGE/SX: 26/F ROOM: RE02/07/[address]: Shavon Maher NP : [id number] BED: DIS: 02/07/2022 SPEC #: [id number] RECD: 02/07/22 18:03 STATUS: BRITTNEY REQ #: [id number] MICHELLE: 02/07/22 11:[address]: Shavon Maher NP DEPT: [facility] Cytology RECD BY: Genie Barker ENTERED: 02/07/22 18:03 SP TYPE: PAPFT OTHR DR: Karina Walters Tissues: 1 - CX/ENDOCX FOR PAP SMEARS Procedures: PAP THIN PREP/[facility] Screening Comments: [id number] (CHLAMYDIA/GC)
[2022-02-08 14:43] LABS: Chlamydia Result Negative (Negative); GC Result Negative (Negative)
== END 2022-02-07 13:34 | disposition home or self-care (01) ==
LOC: LBN 13:33
PROVIDERS: PCP Physician Assistant Medical; Visit Provider Nurse Practitioner Women's Health
DX: Z12.4 Encounter for screening for malignant neoplasm of cervix (principal); Z11.3 Encounter for screening for infections with a predominantly sexual mode of transmission
CPT/HCPCS: 87491; 87591; 88142

== ENCOUNTER 2022-07-26 11:12 | Outpatient (REF) | payer MEDICAID, SELFPAY ==
[2022-07-26 13:40] LABS: Bilirubin Negative (Negative); Blood Negative (Negative); Clarity Sl Cloudy (Clear); Glucose Negative (Negative); Ketones Negative (Negative); Leukocyte Esterase Small (Negative); Nitrite Negative (Negative); Specific Gravity 1.025 (1.005-1.025)
[2022-07-26 13:50] LABS: Bacteria Many HPF (Negative); C & S Indicated? No/Sq. Contamination; Casts Negative LPF (Negative); Crystals Few Calcium Oxalate HPF (Negative); Epithelial Cells Many HPF (Negative); Mucus Trace (Negative); RBC Negative HPF (0-2)
== END 2022-07-26 11:13 | disposition home or self-care (01) ==
LOC: LBN 11:12
PROVIDERS: PCP Physician Assistant Medical; Visit Provider Nurse Practitioner Family
DX: J02.9 Acute pharyngitis, unspecified (principal); R39.9 Unspecified symptoms and signs involving the genitourinary system
CPT/HCPCS: 81003; 81015; 87070

== ENCOUNTER 2022-11-22 13:31 | Outpatient (REF) | payer MEDICAID, SELFPAY | END 2022-11-22 13:32 | disposition home or self-care (01) | LOC: LBN 13:31 | PROVIDERS: PCP Physician Assistant Medical; Visit Provider Obstetrics & Gynecology | DX: R30.0 Dysuria (principal) | CPT/HCPCS: 87077; 87086; 87186 ==

== ENCOUNTER 2023-02-17 00:37 | Outpatient (CLI) | payer MEDICAID, SELFPAY ==
--- NOTE | 2023-02-17 08:00 | DI.US_ITS ---
Exam(s) US PELVIS TRANSVAGINAL EXAM: US PELVIS TRANSVAGINAL CLINICAL HISTORY: anatomy,PELVIC PAIN, R10.2. TECHNIQUE: Transabdominal and transvaginal pelvic ultrasound was performed using standard protocol. COMPARISON: US US PELVIS TRANSVAGINAL from 01/06/2021 FINDINGS: UTERUS: Position: Anteverted. Size: 8.6 long by 4.3 AP by 4.6 transverse cm Endometrium: 0.8 cm. Normal for patient's menstrual status. Myometrium: Unremarkable. Cervix: There is a nabothian cyst present. OVARIES: Right: 2.5 x 2.8 x 3.1 cm Cyst or mass: No suspicious cystic or solid masses. Left: 4.1 x 2.3 x 3.1 cm Cyst or mass: No suspicious cystic or solid masses. DOPPLER: Color: Symmetric and uniform flow to both ovaries. CUL-DE-SAC: Free fluid: None. Other: None. IMPRESSION: 1. Normal-appearing uterus with endometrial stripe within normal limits. 2. Unremarkable bilateral ovaries. DATA REPOSITORY:
== END 2023-02-17 00:57 ==
LOC: DI 00:38
PROVIDERS: PCP Physician Assistant Medical; Visit Provider Obstetrics & Gynecology
DX: R10.2 Pelvic and perineal pain (principal)
CPT/HCPCS: 76830; 76856

== ENCOUNTER 2023-11-14 11:18 | Emergency (ER) | payer MEDICAID, SELFPAY ==
[2023-11-14 11:28] VITALS: BP 118/95; PULSE 95; RESP 16; TEMP 36.1; O2SAT 96
[2023-11-14 11:31] VITALS: BP 118/95; PULSE 95; RESP 16; TEMP 36.1; O2SAT 96
--- NOTE | 2023-11-14 12:10 | W.ED.GENAD ---
HPI General Stated Complaint: RespSymp Mode of arrival: ambulatory. JULIO: 4 Date/Time Provider Initiated Documentation: 11/14/23 11:27. Limitations to Documentation: no limitations. Information obtained by: patient, RN notes reviewed and old records reviewed. HPI Narrative: 28-year-old female presents accompanied with her son who is also a patient is complaining of URI type symptoms since Monday associated with sore throat, ear pain cough. Does not get the vaccination for flu. Has had strep throat in the past. Posterior oropharynx erythemic no exudate. Lungs are clear to auscultation bilaterally. Does have a dry cough noted. Presents with her son with similar symptoms. Has not taken any medications prior to arrival. Has a past medical history of tonsillitis cough. Related Data Home Medications Medication Instructions Recorded Confirmed diclofenac potassium 50 mg tablet 50 mg PO Q12H #30 tabs 02/27/23 02/27/23 Previous Rx's Medication Instructions Recorded diclofenac potassium 50 mg tablet 50 mg PO Q12H #30 tabs 02/27/23 Allergies Allergy/AdvReac Type Severity Reaction Status Date / Time influenza virus vaccine, AdvReac Severe DIARRHEA Verified 03/16/23 10:11 specific [influenza virus vacc,specific] Review of Systems All systems reviewed & are unremarkable except as noted in HPI and below Constitutional Constitutional: Reports body ache(s) and Reports headache(s) ENT Ears, Nose, Mouth, and Throat: Reports headache(s) Cardiovascular Cardiovascular: Reports dyspnea Respiratory Respiratory: Reports as per HPI, Reports cough and Reports dyspnea Gastrointestinal Gastrointestinal: Reports vomiting Neurologic Neurologic: Reports headache(s) PFSH All Active Problems (Updated 11/14/23 @ 12:55 by Eleni Bellamy NP) RSV (respiratory syncytial virus infection) (Acute) Vomiting (Acute) Dysmenorrhea (Acute) Dysfunctional uterine bleeding (Acute) Pelvic pain (Acute) Urinary tract infection (Acute) Oral contraceptive use (Acute) Elevated liver enzymes (Acute) Medical History Cough COVID-19 (~12/2021) Globus sensation Laryngitis, acute Tonsillitis Surgical History Hx of wisdom tooth extraction x4, extra tooth extracted 2015 repair of fx. r elbow growth plate Family History Mother Post traumatic stress disorder (PTSD) Alcohol abuse COPD (chronic obstructive pulmonary disease) Father Alcohol abuse Grandmother Asthma Maternal Grandmother Emphysema/COPD Lung cancer Maternal Grandfather Emphysema/COPD Social History Smoking/Tobacco Use Status: Former Tobacco Use tobacco type: cigarettes Quit Date: 09/13/15 Tobacco: How many years used: 10 Smoking risk assessment performed?: Yes Alcohol Intake: current Alcohol Intake frequency: holidays/special occasions only Drug use: Current Sobriety Substance use type: does not use Housing: house Pets and animals: Yes (1) Pets and animals: cat(s) Seatbelt use: always Do you feel safe at home: Yes Do you feel safe in your relationship?: Yes Female Reproductive History Menstrual control method: pills History History 1 Para Hx # Term Pregnancies 1 Multiple births Hx # Pregnancies Ectopic pregnancies AB induced Hx Number of Living Children AB spontaneous Exam Narrative Exam Narrative: Constitutional: Alert and oriented x3. Appears stated age. Normal body habitus. Head: Normocephalic, no trauma. Eyes: Pupils PERRL, Red reflex noted, EOM's intact. Eyelids symmetrical without lesions, discharge, or swelling. ENT: Bilateral TM's WNL, External ear normal to inspection, no mastoid TTP, swelling, or erythema, Nasal turbinates WNL, no nasal discharge. Normal dentition, Posterior pharynx WNL, no exudate. Chest: RRR, Normal S1, S2, distal pulses intact. Resp: Lungs clear to auscultation bilaterally, no wheezes, rales, or rhonchi. Abdomen: Soft, non-distended, Normoactive bowel sounds all 4 quads. Musculoskeletal: Normal gait, 5/5 strength to all four extremities. Skin: No suspicious rashes or lesions. Capillary refill less than 2 sec. Neurologic: Cranial nerves II-XII intact. Alert and oriented x 3. Motor: No deficits noted. Sensory: Intact bilaterally all 4 extremities. Reflexes: DTR's intact bilaterally.. Hematologic/Lymphatic: No ecchymosis, no lymphadenopathy. Course Vital Signs Vital signs: Vital Signs Temperature 36.1 C L 11/14/23 11:28 Pulse 95 H 11/14/23 11:28 Respiratory Rate 16 11/14/23 11:28 Blood Pressure 118/95 H 11/14/23 11:28 Pulse Oximetry 96 11/14/23 11:28 Temperature 36.1 C L 11/14/23 11:31 Temperature Source Tympanic 11/14/23 11:31 Pulse 95 H 11/14/23 11:31 Respiratory Rate 16 11/14/23 11:31 Respiratory Effort Normal 11/14/23 11:30 Blood Pressure 118/95 H 11/14/23 11:31 Blood Pressure Position Sitting 11/14/23 11:31 Pulse Oximetry 96 11/14/23 11:31 Oxygen Delivery Method Room Air 11/14/23 11:31 Oxygen Flow Rate 0 11/14/23 11:31 Pain Level 8 11/14/23 11:31 Medical Decision Making 28-year-old female presents accompanied with her son who is also a patient is complaining of URI type symptoms since Monday associated with sore throat, ear pain cough. Does not get the vaccination for flu. Has had strep throat in the past. Posterior oropharynx erythemic no exudate. Lungs are clear to auscultation bilaterally. Does have a dry cough noted. Presents with her son with similar symptoms. Has not taken any medications prior to arrival. Has a past medical history of tonsillitis cough. URI type symptoms since Monday associated with sore throat, ear pain cough. Does not get the vaccination for flu. Has had strep throat in the past. Posterior oropharynx erythemic no exudate. Lungs are clear to auscultation bilaterally. Does have a dry cough noted. Presents with her son with similar symptoms. Has not taken any medications prior to arrival. RSV is positive for patient and her son. Informed by clinical staff rn that she attempted to give the Decadron p.o. which patient then vomited. Zofran 4 mg ODT ordered informed almost at goal. Will not reattempt the Decadron at this time. This text was generated using [employer] Control Systemsation system, please disregard any oddities of phrase or misspellings. Quality:SDOH Health Related Social Needs: No Data to Display Discharge Plan Disposition Patient Disposition: Home Condition: Stable Discharge Details Clinical Impression: Vomiting, RSV (respiratory syncytial virus infection) Primary Care Provider: Karina Walters ED Provider: Eleni Bellamy Home Meds and New Rx's Prescriptions: No Action diclofenac potassium 50 mg tablet 50 mg PO Q12H Qty: 30 1RF Rx Instructions: 2 days prior to, and the first 2 days of her menstrual cycle Discharge Instructions Instructions: Viral Syndrome (ED) Additional Instructions: At this time the swabs are positive for RSV. Please take the nausea medication as directed for nausea vomiting. Gargle with warm salt water up to 3 times daily as needed. May continue taking [id number] cough and cold remedies if they seem to help. Mucinex will make you cough more. Please take a multivitamin including vitamin C vitamin D3 and zinc. Please take Tylenol or Ibuprofen with food every 4-6 hours as needed for pain and swelling. Follow up with primary care provider in 3-5 days if needed. Return to ED sooner if any worsening or concerns. Increase oral fluids. Stand Alone Forms: Work Release Referrals: Karina Walters PA [Primary Care Provider] - 5 days Discharge Data Discharge Date/Time-TO BE ENTERED AT DEPARTURE: 11/14/23 13:18
[2023-11-14 12:19] LABS: COVID-19 PCR Negative (Negative); Influenza A PCR Negative (Negative); Influenza B PCR Negative (Negative)
[2023-11-14 12:22] LABS: RSV PCR Positive (Negative); Source Nasopharynx
[2023-11-14] MEDS: Acetaminophen 500 MG TAB 1000 MG PO (12:28)
[2023-11-14] MEDS: Dexamethasone 10 MG/ML VIAL PO (12:32)
--- NOTE | 2023-11-14 12:33 | NUR.NOTE ---
Nursing Note: patient vomitting directly after taking dexamethasone. provider aware.
[2023-11-14] MEDS: Ondansetron O.D.T. 4 MG TABEF PO (13:12)
[2023-11-14] MEDS: Ondansetron O.D.T. 4 MG TABEF, 3 TABS/BTL PO (13:13)
== END 2023-11-14 13:18 | disposition home or self-care (01) ==
PROVIDERS: Emergency Provider Registered Nurse Emergency; PCP Physician Assistant Medical
DX: B34.9 Viral infection, unspecified (principal); B97.4 Respiratory syncytial virus as the cause of diseases classified elsewhere; Z11.52 Encounter for screening for COVID-19; Z87.891 Personal history of nicotine dependence
CPT/HCPCS: 87637; 99283; 87081; J1100

== ENCOUNTER 2024-07-31 08:28 | Emergency (ER) | payer MEDICAID, SELFPAY ==
[2024-07-31 08:30] VITALS: BP 152/95; PULSE 83; RESP 18; TEMP 36.6; O2SAT 99
--- NOTE | 2024-07-31 08:34 | ED.GENADUL_ITS ---
Discharge Plan Disposition Patient Disposition: Home Condition: Stable Discharge Details Clinical Impression: Urinary tract infection Primary Care Provider: Karina Walters ED Provider: Rod Fischer Home Meds and New Rx's Prescriptions: New cefuroxime axetil 500 mg tablet 500 mg PO BID 7 Days Qty: 14 0RF Continued diclofenac potassium 50 mg tablet 50 mg PO Q12H Qty: 30 1RF Rx Instructions: 2 days prior to, and the first 2 days of her menstrual cycle Discharge Instructions Instructions: Cefuroxime, Urinary Tract Infection, Adult ED Additional Instructions: You were seen in the emergency department for your dysuria and burning during urination, your urine is positive for UTI and I have sent an antibiotic to [facility] in [place] to treat this. Please continue taking Tylenol and ibuprofen regularly and stay well-hydrated, please return to the emergency department for worsening despite treatment especially with flank pain and fever and nausea and feeling weak. Referrals: Karina Walters PA [Primary Care Provider] - HPI General Date/Time Provider Initiated Documentation: 07/31/24 08:34 . HPI Narrative: 29 year-old female presents to ED today by POV/ambulating with a chief complaint of dysuria, urinary frequency, some nausea/headache mildly today with onset of UTI symptoms a few days ago. Patient has history of UTIs. Quality described as burning, no radiation to fever, severe abdominal pain, reports mild flank pain, denies shortness of breath, states possible incidental sinus congestion the past day or two. Severity is described as moderate. Palliating factors include took some Tylenol/ibuprofen with mild relief. Provoking factors include nothing specific. Patient not anticoagulated. Related Data Home Medications ?Medication ?Instructions ?Recorded ?Confirmed diclofenac potassium 50 mg tablet 50 mg PO Q12H #30 tabs 02/27/23 07/31/24 cefuroxime axetil 500 mg tablet 500 mg PO BID UTI 7 days #14 tabs 07/31/24 Previous Rx's ?Medication ?Instructions ?Recorded diclofenac potassium 50 mg tablet 50 mg PO Q12H #30 tabs 02/27/23 cefuroxime axetil 500 mg tablet 500 mg PO BID UTI 7 days #14 tabs 07/31/24 Allergies Allergy/AdvReac Type Severity Reaction Status Date / Time influenza virus vaccine, AdvReac Severe DIARRHEA Verified 07/31/24 08:33 specific (influenza virus vacc,specific) General Stated Complaint: Urinary JULIO: 3 Review of Systems All systems reviewed & are unremarkable except as noted in HPI and below Exam Narrative Exam Narrative: GENERAL APPEARANCE: Well-nourished, non-toxic, awake and alert, atraumatic, no acute distress. SKIN: Warm, pink, dry, intact, without rashes/lesions/ulcerations. HEAD: Normocephalic, atraumatic, normal hair distribution for gender/age. EYES: Normal conjunctiva, no exudates on lids/lashes. ENT: Nares patent, no circumoral cyanosis, no facial swelling NECK: Supple, trachea midline, painless cervical ROM. LUNGS/CHEST: Non-labored respirations, normal A/P diameter, symmetrical expansion, no chest wall deformity HEART (CV/PV): No peripheral edema, no JVD. ABDOMEN: Soft, non-distended, no guarding, no CVA tenderness to percussion bilaterally. MSK: Normal ROM, no swelling/deformity to bilateral UEs or LEs, moving all extremities without weakness, no cyanosis, spine midline without tenderness, normal curvature. NEURO: Mental Status AAOx4 - alert to person, place, time, events No facial droop, no forehead involvement. Motor: No focal weakness - strength 5/5 in bilateral UEs and LEs, proximal and distal, symmetric. Sensory: sensation intact to light touch globally. Gait normal: patient ambulated without ataxia into ED room. PSYCH: euthymic, cooperative, pleasant, appropriate speech Course Vital Signs Vital signs: Vital Signs Temperature 36.6 C 07/31/24 08:30 Pulse 83 07/31/24 08:30 Respiratory Rate 07/31/24 08:30 Blood Pressure 152/95 H 07/31/24 08:30 Pulse Oximetry 99 07/31/24 08:30 Temperature 36.6 C 07/31/24 08:30 Temperature Source Oral 07/31/24 08:30 Pulse 83 07/31/24 08:30 Respiratory Rate 18 07/31/24 08:30 Blood Pressure 152/95 H 07/31/24 08:30 Blood Pressure Position Sitting 07/31/24 08:30 Pulse Oximetry 99 07/31/24 08:30 Oxygen Delivery Method Room Air 07/31/24 08:30 Oxygen Flow Rate 0 07/31/24 08:30 Pain Level 7 09/18/24 08:30 Medical Decision Making This dictation utilizes [id number] dictation software and may contain unedited grammatical errors. 29 year-old female presents to ED today by POV/ambulating with a chief complaint of dysuria, urinary frequency, some nausea/headache mildly today with onset of UTI symptoms a few days ago. Patient has history of UTIs. Quality described as burning, no radiation to fever, severe abdominal pain, reports mild flank pain, denies shortness of breath, states possible incidental sinus congestion the past day or two. Severity is described as moderate. Palliating factors include took some Tylenol/ibuprofen with mild relief. Provoking factors include nothing specific. Patients' medical history: UTI, pelvic pain, dysmenorrhea, dysfunctional uterine bleeding. Family and social history: Noncontributory, does have school-aged children for possible incidental sinus congestion. Pertinent exam findings / vital signs include no CVA tenderness to percussion, nontoxic vitals, no severe abdominal tenderness. Differential / pathologies of concern include UTI, cervicitis, pyelonephirits, vaginitis, not sepsis. Diagnostic studies of: -UA, POC Upreg. -Upreg negative -UA positive for nitrites, UTI likely Interventions of: -Cefuroxime Rx. ED Course/Assessment/Plan: Well-appearing 29-year-old female presents with few days of UTI symptoms has history of UTI, UA confirms this with a positive for nitrites, treated with cefuroxime by prescription, patient has incidental sinus congestion that may be due to her school-aged children return to school and viral syndromes t ransmitting in the community. Counseled on regular Tylenol and ibuprofen use, return criteria for any worsening despite treatment. Findings not consistent with toxic illness, respiratory distress. Disposition of urinary tract infection. Patient verbalized understanding of the plan and return to ED criteria and engaged in shared decision making. Medical Records Medical records reviewed: Yes I reviewed the patient's medical records. Lab Data Lab results reviewed: Yes I reviewed the patient's lab results. Labs: 07/31/24 08:39 Urine - Reflex from Ua Urine Culture - Pending Laboratory Tests Range/Units 07/31/24 08:39 Urine Color (Yellow) Yellow Urine Clarity (Clear) Clear Urine pH (5-8) 7.5 Ur Specific Heidrick (1.005-1.025) 1.015 Urine Protein (Neg-Trace) mg/dL Negative Urine Ketones (Negative) mg/dL Negative Urine Blood (Negative) Negative Urine Nitrite (Negative) Positive H Urine Bilirubin (Negative) Negative Urine Urobilinogen (Up to 0.2) mg/dL 0.2 Ur Leukocyte Esterase (Negative) Small H Urine RBC (0-2) HPF 0-2 Urine WBC (0-5) HPF 5-10 Ur Epithelial Cells (Negative) HPF Few Urine Crystals (Negative) HPF Negative Urine Bacteria (Negative) HPF Moderate Urine Mucus (Negative) Negative Ur Culture Indicated? Yes Urine Glucose (Negative) mg/dL Negative Quality:SDOH Health Related Social Needs: No Data to Display PFSH All Active Problems (Updated 07/31/24 @ 09:08 by EUSEBIO Infante) Urinary tract infection (Acute) Dysmenorrhea (Acute) Dysfunctional uterine bleeding (Acute) Pelvic pain (Acute) Urinary tract infection (Acute) Oral contraceptive use (Acute) Elevated liver enzymes (Acute) Medical History Cough COVID-19 (~12/2021) Globus sensation Laryngitis, acute Tonsillitis Surgical History Hx of wisdom tooth extraction x4, extra tooth extracted 2015 repair of fx. r elbow growth plate Family History Mother Post traumatic stress disorder (PTSD) Alcohol abuse COPD (chronic obstructive pulmonary disease) Father Alcohol abuse Grandmother Asthma Maternal Grandmother Emphysema/COPD Lung cancer Maternal Grandfather Emphysema/COPD Social History Smoking/Tobacco Use Status: Former Tobacco Use tobacco type: cigarettes Quit Date: 09/13/15 Tobacco: How many years used: 10 Smoking risk assessment performed?: Yes Alcohol Intake: current Alcohol Intake frequency: holidays/special occasions only Drug use: Current Sobriety Substance use type: does not use Housing: house Pets and animals: Yes (1) Pets and animals: cat(s) Seatbelt use: always Do you feel safe at home: Yes Do you feel safe in your relationship?: Yes Female Reproductive History Menstrual control method: pills History History 1 Para Hx # Term Pregnancies 1 Multiple births Hx # Pregnancies Ectopic pregnancies AB induced Hx Number of Living Children AB spontaneous
[2024-07-31 08:52] LABS: Bilirubin Negative (Negative); Blood Negative (Negative); Clarity Clear (Clear); Glucose Negative (Negative); Ketones Negative (Negative); Leukocyte Esterase Small (Negative); Nitrite Positive (Negative); Specific Gravity 1.015 (1.005-1.025); Urobilinogen 0.2 mg/dL (Up to 0.2); pH 7.5 (5-8)
[2024-07-31 09:02] LABS: Epithelial Cells Few HPF (Negative); RBC 0-2 HPF (0-2)
[2024-07-31 09:03] LABS: Bacteria Moderate HPF (Negative); C & S Indicated? Yes; Crystals Negative HPF (Negative); Mucus Negative (Negative)
== END 2024-07-31 09:24 | disposition home or self-care (01) ==
PROVIDERS: Emergency Provider Physician Assistant; PCP Physician Assistant Medical
DX: R10.30 Lower abdominal pain, unspecified (principal); R30.0 Dysuria; R35.0 Frequency of micturition; N39.0 Urinary tract infection, site not specified
CPT/HCPCS: 81025; 87077; 99283; 81003; 81015; 87086; 87186

== ENCOUNTER 2025-07-11 13:42 | Outpatient (CLI) | payer MEDICAID, SELFPAY ==
[2025-07-11 11:25] LABS: TSH (W/Ref FT4) 1.87 uIU/mL (0.36-3.74)
[2025-07-11 11:26] LABS: HCG Quant, Pregnancy < 1 mIU/mL (1-3)
[2025-07-11 21:42] LABS: FSH 2.9 mIU/mL (See Note)
[2025-07-15 09:32] LABS: Estradiol, Mass Spectrometry 119 pg/mL
== END 2025-07-11 13:43 | disposition home or self-care (01) ==
LOC: LBO 13:43
PROVIDERS: PCP Physician Assistant Medical; Visit Provider Obstetrics & Gynecology
DX: N91.2 Amenorrhea, unspecified (principal)
CPT/HCPCS: 36415; 84403; 82670; 82679; 83001; 84146; 84443; 84702

== ENCOUNTER 2025-07-28 13:16 | Outpatient (CLI) | payer MEDICAID, SELFPAY ==
--- NOTE | 2025-07-28 | DI.RAD_ITS ---
Exam(s) XR SHOULDER RT COMPLETE 2+V EXAM: XR SHOULDER RT COMPLETE 2+V CLINICAL HISTORY: RT SHOULDER PAIN M25.511. TECHNIQUE: 2D digital imaging was performed. COMPARISON: No exams were available for comparison FINDINGS: Five views No evidence of fracture or dislocation or abnormal soft tissue calcifications. Subacromial space is not diminished. There are no degenerative changes in the glenohumeral and AC joints. Bone density normal. No osseous lesions. IMPRESSION: No significant radiographic findings in right shoulder. DATA REPOSITORY: RADIATION DOSE DELIVERED:
== END 2025-07-28 13:36 ==
LOC: DI 09-12 13:16
PROVIDERS: PCP Physician Assistant Medical; Visit Provider Physician Assistant Medical
DX: N63.20 Unspecified lump in the left breast, unspecified quadrant (principal); N83.292 Other ovarian cyst, left side
CPT/HCPCS: 73030

== ENCOUNTER 2025-08-04 10:00 | Outpatient (REF) | payer MEDICAID, SELFPAY | END 2025-08-04 10:01 | disposition home or self-care (01) | LOC: LBN 10:00 | PROVIDERS: PCP Physician Assistant Medical; Visit Provider Obstetrics & Gynecology | DX: Z12.4 Encounter for screening for malignant neoplasm of cervix (principal) | CPT/HCPCS: 88142 ==

== ENCOUNTER 2025-08-27 00:13 | Outpatient (CLI) | payer MEDICAID, SELFPAY ==
--- NOTE | 2025-08-27 06:15 | DI.US_ITS ---
Exam(s) US PELVIS TRANSVAGINAL EXAM: US PELVIS TRANSVAGINAL CLINICAL HISTORY: secondary amenorrhea,dysfunctional uterine bleeding,n93.8. TECHNIQUE: Transabdominal and transvaginal pelvic ultrasound was performed using standard protocol. COMPARISON: US US PELVIS TRANSVAGINAL from 02/17/2023 FINDINGS: UTERUS: Position: Anteverted. Size: 7.8 long by 3.7 AP by 5.5 transverse cm Endometrium: 0.7 cm. Normal for patient's menstrual status. Myometrium: Unremarkable. Cervix: Unremarkable. OVARIES: Right: 3.0 x 1.8 x 1.9 cm Cyst or mass: No suspicious cystic or solid masses. Left: 7.4 x 6.7 x 8.0 cm Cyst or mass: There is a 7.0 x 7.5 x 5.0 cm simple cyst on the left ovary. DOPPLER: Color: Symmetric and uniform flow to both ovaries. CUL-DE-SAC: Free fluid: None. Other: None. IMPRESSION: 1. Normal-appearing uterus with endometrial stripe within normal limits. 2. 7.0 x 7.5 x 5.0 cm simple cyst on the left ovary. This is likely physiologic, however, a follow-up pelvic ultrasound in 6 to 8 weeks is recommended to document resolution of the cyst and to exclude other etiologies. Unexpected findings DATA REPOSITORY:
== END 2025-08-27 00:33 ==
LOC: DI 00:13
PROVIDERS: PCP Physician Assistant Medical; Visit Provider Obstetrics & Gynecology
DX: N93.8 Other specified abnormal uterine and vaginal bleeding (principal)
CPT/HCPCS: 76830; 76856

== ENCOUNTER 2025-09-01 11:55 | Outpatient (CLI) | payer MEDICAID, SELFPAY ==
[2025-09-01 13:20] LABS: LDH 196 U/L (81-234)
[2025-09-03 09:41] LABS: CA 125 19 U/mL (<30)
[2025-09-04 11:18] LABS: HE4 35 pmol/L (<=140)
[2025-09-05 12:17] LABS: Beta-HCG, Quant, Tumor Marker <0.6 IU/L
== END 2025-09-01 11:56 | disposition home or self-care (01) ==
LOC: LBO 11:56
PROVIDERS: PCP Physician Assistant Medical; Visit Provider Obstetrics & Gynecology
DX: N94.9 Unspecified condition associated with female genital organs and menstrual cycle (principal)
CPT/HCPCS: 36415; 86304; 86305; 82105; 83615; 84702

== ENCOUNTER 2025-09-01 12:14 | Outpatient (REF) | payer MEDICAID, SELFPAY | END 2025-09-01 12:15 | disposition home or self-care (01) | LOC: LBN 12:14 | PROVIDERS: PCP Physician Assistant Medical; Visit Provider Obstetrics & Gynecology | DX: R10.9 Unspecified abdominal pain (principal) | CPT/HCPCS: 87086 ==

== ENCOUNTER 2025-09-05 03:15 | Outpatient (CLI) | payer MEDICAID, SELFPAY ==
--- NOTE | 2025-09-05 06:44 | DI.CT_ITS ---
Exam(s) CT CHEST/ABD/PEL W EXAM: CT CHEST/ABD/PEL W CLINICAL HISTORY: Large adnexal cyst,n94.9. TECHNIQUE: Imaging Protocol: Axial computed tomography images with coronal and sagittal reformatted images were created and reviewed. Computer aided detection (CAD) was utilized. CONTRAST MATERIAL: Intravenous: Omnipaque 350 Contrast volume:75 ml Oral: yes / COMPARISON: US US PELVIS TRANSVAGINAL from 08/27/2025 FINDINGS: CHEST: Pulmonary parenchyma: No consolidation. No dominant measurable mass. Tracheobronchial tree: No bronchiectasis. No mucous plugging.No bronchial wall thickening. Pleura: No effusion or pneumothorax. Mediastinum: Small hiatal hernia. Residual thymic tissue. Pulmonary arteries: No visible emboli. Cardiovascular: No pericardial effusion. Thoracic aorta non-dilated. Bones: Unremarkable for age. No lytic or blastic lesions. No compression fractures. Soft tissues: Unremarkable 18 millimeter nodule noted in the left breast. ABDOMEN and PELVIS: Liver: Normal density. No suspicious mass. Gallbladder and biliary tract: No evidence of stones or wall thickening. No biliary dilatation. Pancreas: Normal density, no abnormal calcifications or inflammatory process. Spleen: Normal. Kidneys: Normal size, contour and axis. No radiodense stones. No obstructive uropathy. No suspicious masses seen. Adrenal glands: No masses seen. Aorta: Abdominal portion non-dilated. Lymph nodes: Within normal limits. Soft tissues: Unremarkable. Bladder: Unremarkable. Bowel: No obstruction or bowel wall thickening. The appendix is normal. Peritoneal cavity: No ascites. No focal collection. No mesenteric inflammatory response. No free air. Bones: Unremarkable for age. Reproductive organs: 7.8 centimeter cyst of the left ovary appears simple. The right ovary and uterus are unremarkable. IMPRESSION: 7.8 centimeter cyst of the left ovary appears simple on the current exam. No significant change in size from the previous ultrasound. 18 millimeter nodule in the left breast. Ultrasound recommended for further evaluation. Unexpected findings RADIATION DOSE DELIVERED: 420.26mGy.cm Total DLP DATA REPOSITORY: All CT scans at this facility are submitted to the National Radiology Data Registry (NRDR) Dose Index Registry (DIR) with the [employer] (ACR). RADIATION OPTIMIZATION: All CT scans at this facility use at least one of these dose optimization techniques: automated exposure control; mA and/or kV adjustment per patient size (includes targeted exams where dose is matched to clinical indication); or iterative reconstruction.
[2025-09-05] MEDS: Barium Sulfate 2% W/V-Berry Smoothie 450 ML BTL PO (07:36)
[2025-09-05] MEDS: Barium Sulfate 2% W/V-Creamy Vanilla Smoothie 450 ML BTL PO (07:36)
[2025-09-05] MEDS: Omnipaque 350 MG/ML 100 ML BTL IJ (09:44)
[2025-09-05] MEDS: Normal Saline - Diluent 50 ML VIAL IJ (09:44)
== END 2025-09-05 03:35 ==
LOC: DI 03:15
PROVIDERS: PCP Physician Assistant Medical; Visit Provider Obstetrics & Gynecology
DX: N94.9 Unspecified condition associated with female genital organs and menstrual cycle (principal)
CPT/HCPCS: 74177; 71260; J3490

== ENCOUNTER 2025-09-26 12:09 | Emergency (ER) | payer MEDICAID, SELFPAY ==
[2025-09-26 12:14] VITALS: BP 136/89; PULSE 75; RESP 16; TEMP 36.8; O2SAT 98
[2025-09-26 13:06] LABS: Abs Immature Grans 0.03 10^3/uL (0.0-0.06); HCT 45.5 % (36.0-46.0); HGB 15.2 g/dL (11.2-15.7); Immature Grans % 0.5 %; MCH 29.5 pg (27.0-33.0); MCHC 33.4 % (32.0-36.0); MCV 88 fL (80-95); MPV 11.4 fL (8.0-11.0); Platelet Count 236 10^3/uL (130-400); RBC 5.15 10^6/uL (3.93-5.22); RDW 12.5 % (11.7-14.6); RDW-SD 41.0 fL; WBC 6.51 10^3/uL (4.4-10.8)
--- NOTE | 2025-09-26 13:25 | ED.GENADUL_ITS ---
Discharge Plan Disposition Patient Disposition: Home Condition: Stable Discharge Details Clinical Impression: Dysfunctional uterine bleeding Primary Care Provider: Karina Walters ED Provider: Ambrose Katz Home Meds and New Rx's Prescriptions: No Action No Known Home Meds Discharge Instructions Instructions: Heavy Periods ED Additional Instructions: You were given acetaminophen (Tylenol) and Toradol which is similar to ibuprofen today in the emergency department. Your next dose of Tylenol and ibuprofen should not be for 8 hours. Dose according to label thereafter. 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 Call today to schedule outpatient follow-up. Return to the emergency department immediately for any worsening or new concerning symptoms. Stand Alone Forms: Portal Information Referrals: [facility] [Provider Group] Karina Walters PA [Primary Care Provider, Medicine] Discharge Data Discharge Date/Time-TO BE ENTERED AT DEPARTURE: 09/26/25 14:17 HPI General Mode of arrival: ambulatory . Date/Time Provider Initiated Documentation: 09/26/25 12:20 . Limitations to Documentation: no limitations . Information obtained by: patient . HPI Narrative: HISTORY OF PRESENT ILLNESS This is a 30-year-old female with a history of dysmenorrhea and dysfunctional uterine bleeding presenting with heavy menstrual flow for 1 day, changing pad every hour. The patient reports an unusually heavy menstrual period that began on 09/25/2025, which is not typical for her. She missed her period in 08/2025 and had a short one in 07/2025. This morning, she used three super tampons within a few hours. She was advised to seek medical attention if she experienced a migraine or dizziness. She describes painful cramps, similar to end-stage contractions, extending from her uterus to her lower back. She does not bleed easily when cut and has not experienced any recent bleeding from other sites. She has a known 7.8 cm cyst on her left ovary, but it was suggested that this is unrelated to her current symptoms. She is not and has not been sexually active recently, with her last sexual activity occurring a few months ago. An ultrasound performed after this time showed no abnormalities. She contacted [facility] this morning and was advised to use heat, Tylenol, and Midol for relief. She experiences lightheadedness when standing up quickly and has a headache behind her eyes. She also reports increased sensitivity. She has not experienced any other unusual symptoms recently. She is not currently on any hormonal therapy. Related Data Home Medications Medication Instructions Recorded Confirmed Unknown [No Known Home Meds] 07/11/25 1 11/26/24 Allergies Allergy/AdvReac Type Severity Reaction Status Date / Time influenza virus vaccine, AdvReac Severe DIARRHEA Verified 09/26/25 12:16 specific (influenza virus vacc,specific) General Stated Complaint: [employer] JULIO: 3 Review of Systems All systems reviewed & are unremarkable except as noted in HPI and below Constitutional Constitutional: Denies fever(s) Exam Const General: cooperative and no acute distress [facility] Mouth: moist mucous membranes Eyes Sclera: normal sclerae Resp Auscultation: clear to auscultation bilaterally, no rales, no rhonchi and no wheezes Cardio Rate: regular rate and not tachycardic Rhythm: regular rhythm GI Palpation: soft, not firm, no guarding, no masses, not rigid and nontender Skin General skin exam: no rashes or lesions noted Neuro General: patient alert, patient awake and tone normal Course Vital Signs Vital signs: Vital Signs Temperature 36.8 C 09/26/25 12:14 Pulse 75 09/26/25 12:14 Respiratory Rate 16 09/26/25 12:14 Blood Pressure 136/89 09/26/25 12:14 Pulse Oximetry 98 09/26/25 12:14 Temperature 36.8 C 09/26/25 12:14 Pulse 75 09/26/25 12:14 Respiratory Rate 16 09/26/25 12:14 Blood Pressure 136/89 09/26/25 12:14 Pulse Oximetry 98 09/26/25 12:14 Lab/Test Results Lab/Test Results: Laboratory Tests Range/Units 09/26/25 12:53 WBC (4.4-10.8) 10^3/uL 6.51 RBC (3.93-5.22) 10^6/uL 5.15 Hgb (11.2-15.7) g/dL 15.2 Hct (36.0-46.0) % 45.5 MCV (80-95) fL 88 MCH (27.0-33.0) pg 29.5 MCHC (32.0-36.0) % 33.4 RDW (11.7-14.6) % 12.5 Plt Count (130-400) 10^3/uL 236 MPV (8.0-11.0) fL 11.4 H Immature Gran % % 0.5 Neutrophils % % 60.9 Lymphocytes % % 28.0 Monocytes % % 8.4 Eosinophils % % 1.4 Basophils % % 0.8 Nucleated RBC % (0.0-0.3) % 0.0 Absolute Neutrophils (1.2-6.7) 10^3/uL 3.97 Absolute Lymphocytes (1.2-3.4) 10^3/uL 1.82 Absolute Monocytes (0.1-0.8) 10^3/uL 0.55 Absolute Eosinophils (0.0-0.7) 10^3/uL 0.09 Absolute Basophils (0.0-0.2) 10^3/uL 0.05 Medical Decision Making 30-year-old female with history of dysfunctional uterine bleeding, here with heavy menstrual flow and painful cramping today. Patient is hemodynamically stable. Abdominal tender with no peritoneal findings. Considered anemia from active bleeding. Labs checked and hemoglobin normal. I spoke with Dr. Mckeon, discussed ED presentation course, she recommends Toradol, discharged to follow-up outpatient. She does not recommend additional diagnostic imaging at this time. Patient reassessed and notes when she went to the bathroom to change her pad she notes bleeding has significantly improved. Only small amount on her pad. No hemorrhage. Patient stable. Plan for discharge with outpatient follow-up. Usual customary discharge instructions were reviewed with the patient. She was encouraged to return immediately for any worsening or new concerning symptoms. Lab Data Lab results reviewed: Yes I reviewed the patient's lab results. Labs: Laboratory Tests Range/Units 09/26/25 09/26/25 12:53 13:28 WBC (4.4-10.8) 10^3/uL 6.51 RBC (3.93-5.22) 10^6/uL 5.15 Hgb (11.2-15.7) g/dL 15.2 Hct (36.0-46.0) % 45.5 MCV (80-95) fL 88 MCH (27.0-33.0) pg 29.5 MCHC (32.0-36.0) % 33.4 RDW (11.7-14.6) % 12.5 Plt Count (130-400) 10^3/uL 236 MPV (8.0-11.0) fL 11.4 H Immature Gran % % 0.5 Neutrophils % % 60.9 Lymphocytes % % 28.0 Monocytes % % 8.4 Eosinophils % % 1.4 Basophils % % 0.8 Nucleated RBC % (0.0-0.3) % 0.0 Absolute Neutrophils (1.2-6.7) 10^3/uL 3.97 Absolute Lymphocytes (1.2-3.4) 10^3/uL 1.82 Absolute Monocytes (0.1-0.8) 10^3/uL 0.55 Absolute Eosinophils (0.0-0.7) 10^3/uL 0.09 Absolute Basophils (0.0-0.2) 10^3/uL 0.05 Urine HCG, Qual Negative ABO/Rh A Positive Antibody Screen NEGATIVE PFSH All Active Problems (Updated 09/26/25 @ 13:47 by Ambrose Katz MD) Abdominal pressure (Acute) Dysmenorrhea (Acute) Dysfunctional uterine bleeding (Acute) Pelvic pain (Acute) Urinary tract infection (Acute) Oral contraceptive use (Acute) Elevated liver enzymes (Acute) Medical History COVID-19 (~12/2021) Globus sensation Laryngitis, acute Tonsillitis Cough Surgical History Hx of wisdom tooth extraction x4, extra tooth extracted 2015 repair of fx. r elbow growth plate Family History Mother Post traumatic stress disorder (PTSD) Alcohol abuse COPD (chronic obstructive pulmonary disease) Father Alcohol abuse Grandmother Asthma Maternal Grandmother Emphysema/COPD Lung cancer Maternal Grandfather Emphysema/COPD Social History Smoking/Tobacco Use Status: Former Tobacco Use tobacco type: cigarettes Quit Date: 09/13/15 Tobacco: How many years used: 10 Smoking risk assessment performed?: Yes Alcohol Intake: former Drug use: Current Sobriety Substance use type: does not use Housing: house Pets and animals: Yes (1) Pets and animals: cat(s) Seatbelt use: always Do you feel safe at home: Yes Do you feel safe in your relationship?: Yes Female Reproductive History Menstrual control method: pills History History 1 Para 1 Hx # Term Pregnancies 1 Multiple births Hx # Pregnancies Ectopic pregnancies AB induced Hx Number of Living Children AB spontaneous Past Pregnancies Del. Date GA/Weeks # Preg Succ Route Wgt Sex Labor Lgth Anesth esia Location [facility] 05/25/15 42 Yes vaginal 3401.943 g Male [facility]
[2025-09-26 13:40] LABS: HCG Qual (Urine) Negative
[2025-09-26] MEDS: Acetaminophen 325 MG TAB 650 MG PO (13:43)
[2025-09-26] MEDS: Ketorolac 15 MG/ML VIAL IVP (13:43)
== END 2025-09-26 14:17 | disposition home or self-care (01) ==
PROVIDERS: Emergency Provider Student in an Organized Health Care Education/Training Program; PCP Physician Assistant Medical
DX: R10.817 Generalized abdominal tenderness (principal); N94.6 Dysmenorrhea, unspecified
CPT/HCPCS: 99283; 99284; 96374; 36415; 86850; 86900; 86901; 81025; 85025; J1885

== ENCOUNTER → 2025-10-13 03:46 | Outpatient (CLI) | payer MEDICAID, SELFPAY ==
--- NOTE | 2025-10-13 07:00 | DI.US_ITS ---
Exam(s) US BREAST LT COMPLETE EXAM: US BREAST LT COMPLETE CLINICAL HISTORY: incidental left breast mass on chest ct, 09/05/25,r92.30,dense breast tissu. TECHNIQUE: Complete ultrasound of the LEFT breast was performed including all 4 quadrants, the retroareolar region, and the ipsilateral axilla. COMPARISON: Prior recent CT scan performed 09/05/2025 was reviewed. FINDINGS: LEFT BREAST ULTRASOUND: There is a solitary finding at the relatively central 1 o'clock position which is a lobulated wider than taller solid nodule measuring 1.8 x 1.3 cm, this corresponding to the finding on the recent CT scan. It exhibits neutral through transmission. Scratch There are no other focal ultrasound findings in all 4 quadrants of the left breast. Scanning of the left axilla is negative for significant lymphadenopathy. IMPRESSION: There is a solitary lobulated 18 x 13 mm wider than taller solid nodule at the 1-2 o'clock position of the left breast which corresponds to the incidental finding on the recent chest CT scan. 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 Findings are recommendations were discussed by myself with the patient today. I also called the referring physician's office gave the report to the covering physician. This patient apparently has a follow-up appointment in the office in 3 days time. BI-RADS Category 4 - Suspicious Abnormality: Biopsy should be considered Breast Density - Category C - The breast are heterogeneously dense, which may obscure small masses. Breast density Category C or D implies that the patient has dense breast tissue. Dense breast tissue can make it harder to find cancer on a mammogram. Dense breast tissue is also associated with an increased risk of breast cancer. This information about the result of the mammogram report was provided to the patient to raise their awareness. Use this report when you speak with the patient about their risks for breast cancer, which includes their family history. At that time, you may recommend additional screening tests (Ultrasound or MRI) as these tests may add significant information. A negative radiographic report should not delay biopsy if a dominant or clinically suspicious mass is present. Up to ten percent of cancers are not identified on mammography. A negative report may reinforce clinical impression. Adenosis and dense breasts may obscure an underlying neoplasm. False positive reports average 6 to 10%. Patient will receive a letter notifying them of these results.
== END ==
LOC: DI 03:46
PROVIDERS: PCP Physician Assistant Medical; Visit Provider Obstetrics & Gynecology
DX: R92.333 Mammographic heterogeneous density, bilateral breasts; N63.25 Unspecified lump in the left breast, overlapping quadrants
CPT/HCPCS: 76642

== ENCOUNTER → 2025-10-24 01:18 | Outpatient (CLI) | payer MEDICAID, SELFPAY ==
--- NOTE | 2025-10-24 10:50 | DI.MAMMO_ITS ---
Exam(s) MG MAMMO DIAGNOSTIC UNI EXAM: MG MAMMO DIAGNOSTIC UNI CLINICAL HISTORY: post biopsy mammogram,lt breast mass,n63.20. COMPARISON: CT CT CHEST/ABD/PEL W from 09/05/2025 US US BREAST LT COMPLETE from 10/13/2025 No prior mammograms are available for comparison. TECHNIQUE: Craniocaudal and mediolateral Full Field Digital Mammography views of the left breast with Computer Aided Diagnosis FINDINGS: Mammography/Tomosynthesis: Masses: Circumscribed nodule in the central breast tissue measuring 1.7 by 2.3 cm. The patient has undergone ultrasound-guided biopsy. A biopsy marker is present centrally within the lesion. This corresponds to the previously noted ultrasound abnormality. Architectural Distortion: None seen. Microcalcifications: No suspicious pleomorphic-type are seen. Skin Thickening/Nipple Retraction: None. IMPRESSION: 1. Successful ultrasound-guided biopsy. The biopsy marker is present within the lesion. BI-RADS Category 0 - Incomplete: Awaiting pathology results. Breast Density - Category B - There are scattered areas of fibroglandular density. Breast density Category C or D implies that the patient has dense breast tissue. Dense breast tissue can make it harder to find cancer on a mammogram. Dense breast tissue is also associated with an increased risk of breast cancer. This information about the result of the mammogram report was provided to the patient to raise their awareness. Use this report when you speak with the patient about their risks for breast cancer, which includes their family history. At that time, you may recommend additional screening tests (Ultrasound or MRI) as these tests may add significant information. A negative radiographic report should not delay biopsy if a dominant or clinically suspicious mass is present. Up to ten percent of cancers are not identified on mammography. A negative report may reinforce clinical impression. Adenosis and dense breasts may obscure an underlying neoplasm. False positive reports average 6 to 10%. Patient will receive a letter notifying them of these results.
== END ==
PROVIDERS: PCP Physician Assistant Medical; Visit Provider Surgery
DX: N63.20 Unspecified lump in the left breast, unspecified quadrant (principal); Z12.31 Encounter for screening mammogram for malignant neoplasm of breast
CPT/HCPCS: 77061; 77065; G0279

== ENCOUNTER 2025-10-24 10:48 | Outpatient (REF) | payer MEDICAID, SELFPAY ==
--- NOTE | 2025-10-24 10:05 | BREAST_PTH ---
PATIENT: Ida Doe LOC: [facility] U#:[id number] AGE/SX: 30/F ROOM: RE10/24/[address]: Chhaya Haddad MD : [id number] BED: DIS: 10/24/2025 SPEC #: [id number] RECD: 10/24/25 12:38 STATUS: BRITTNEY REQ #: [id number] MIHCELLE: 10/24/25 10:[address]: Chhaya Haddad DEPT: Surgical Specimen RECD BY: Genie Barker ENTERED: 10/24/25 12:39 SP TYPE: Breast OTHR DR: Karina Walters Tissues: 1 - BREAST BX NEEDLE Procedures: GROSS AND MICRO LEVEL 4 Comments: [id number]
== END 2025-10-24 10:49 | disposition home or self-care (01) ==
LOC: LBN 10:48
PROVIDERS: PCP Physician Assistant Medical; Visit Provider Surgery
DX: D24.2 Benign neoplasm of left breast (principal)
CPT/HCPCS: 88305